=== PATIENT | male | born 1950 | race Caucasian/White ===

== ENCOUNTER 2023-10-09 16:16 | Inpatient (IN) ==
[2023-10-09] MEDS ORDERED: ACETAMINOPHEN 1,000 MG/100 ML VIAL IV STA (16:25)
[2023-10-09] MEDS ORDERED: CEFEPIME 2,000 MG/20 ML VIAL IV STA (16:25)
[2023-10-09] MEDS ORDERED: VANCOMYCIN HCL 1,500 MG in SODIUM CHLORIDE 0.9% 500 ML IV STA (16:25)
[2023-10-09] MEDS ORDERED: VANCOMYCIN CONSULT ACTIVE PRN (16:25)
[2023-10-09] MEDS ORDERED: SODIUM CHLORIDE 0.9% 1,000 ML IV SCH (16:30)
--- NOTE | 2023-10-09 16:40 | Emergency Department Note ---
Impression & Plan Sepsis, Hypoxia, Perforated viscus, Bilateral cellulitis of lower leg ED Provider Note Diagnosis: Sepsis, perforated viscus, hypoxia, thrombocytopenia, respiratory distress Disposition: Admission CHIEF COMPLAINT: Unresponsive, tachycardic, hypoxic HPI: Patient is a 72-year-old male found altered mental status at home by family. Patient reportedly had a fall 4 to 5 days prior and has not been acting himself since that time. Patient's son reports that he does not take any of his medications. Patient last time he was here couple months prior was diagnosed with CHF clot in his right atrium as well as atrial fibrillation. Patient found by EMS today to be hypotensive tachycardic and febrile. Patient had wounds to his legs that are weeping. Patient was given 2 L of LR prior to arrival with improvement in blood pressure up to 110 systolic upon arrival. Patient was reportedly 86% on room air for EMS requiring nasal cannula oxygen support. Patient's son was reportedly on scene and stated that the patient is a DNR/DNI. Patient unable to provide any history of present illness. PAST MEDICAL HISTORY: See Below PAST SURGICAL HISTORY: See Below SOCIAL HISTORY: See Below HOME MEDICATIONS: See Below ALLERGIES: See Below VITALS: See Below PHYSICAL EXAMINATION: GENERAL: Severe distress EYE EXAM: Normal conjunctiva. OROPHARYNX: Dry mucous membranes NECK: Supple, LUNGS: Clear to auscultation. Normal chest wall mechanics. HEART: Tachycardia, irregular regular rhythm ABDOMEN: Abdomen soft, non-tender, normo-active bowel sounds, no masses, no rebound or guarding BACK: No CVA TTP. SKIN: Lower extremities with weeping and cellulitis UPPER EXTREMITIES: Upper extremities are grossly normal LOWER EXTREMITIES: Grossly normal, no edema. NEURO EXAM: Patient minimally responsive to questioning, moves all fours purposefully PSYCH: Cooperative MEDICAL DECISION MAKING: Reviewed external documents: History obtained from: Patient, son, EMS ER Course: Patient is a 72-year-old male presenting after reportedly not acting his normal self since Friday. Patient reportedly had a fall and neighbors had called the son and states that the patient was not his normal self. Patient's son drove up Tg found him to be confused semiresponsive and in critical condition. Patient found by EMS to have a initial blood pressure of 50 systolic. Patient was given 2 L of LR which was started at 1545 and and infusion time was time of arrival in the emergency room. Patient was given another 1 L of normal saline to complete 30 cc/kg bolus per septic protocol. Patient was started on cefepime vancomycin. Patient found to be tachycardic with A-fib with RVR. Patient was started on amiodarone due to the hypotension. Patient placed on BiPAP due to his hypoxia and initial recommendation of not wanting to be intubated per the son. Patient found to have on blood work acute kidney injury as well as transaminitis and a CT noncontrast was performed which showed perforated viscus. Patient's case discussed with general surgery team who recommend taking patient to the operating room and admitting to the hospital service and intensive care team. Case was discussed with both hospitalist and ICU teams. Discussion was had with son the patient was in very critical condition and he understands that he may not survive his current situation. Labs (independently interpreted) are significant for: Sepsis, acute kidney injury, transaminitis, thrombocytopenia Imaging results (independently interpreted): Chest x-ray no overt pneumonia present EKG interpretation (independently interpreted): A-fib with RVR Medications given: Amiodarone, normal saline bolus, cefepime, vancomycin Consultants: Dr. Rivera of general surgery, reviewed patient's case CT scan and critical condition. Will take patient from ER to the operating room. Call was placed again updating him that patient was thrombocytopenic and he was in agreement with transfusing 1 pack of platelets and type and screen the patient. Patient mated to hospital service Case discussed with Awais from intensive care team Triage Nursing notes reviewed and agree them. Vital Signs: reviewed and remarkable for: Tachycardia, hypotension Patient's son bedside confirms DNR/DNI status originally. After discussion about findings of perforated viscus and need for potential surgery son states that patient can be intubated if necessary but would continue to have the patient is a DNR status Critical care time 55 minutes, this time does not include any time performing procedures. Past Med/Surg History Medical History (Updated 10/10/23 @ 02:07 by Kali Castro DO) Acute kidney failure Thrombocytopathia Cardiomyopathy Wound, open, leg Social History Smoking Status: Current every day smoker Tobacco Type: Cigarettes Cigarettes Per Day: 1; Second Hand Exposure: No; Do You Dip or Chew Tobacco: No; Tobacco Cessation Education Requested by Patient: No Hx Alcohol Use: Yes Alcohol type: hard liquor Hx Substance Use: No Preferred Language: Bulgarian Communication Ability: Unable Breast Puller Required: No Beliefs That Will Affect Care: None Current Living Situation: Family Other Information That Helps Us Care for You: No Feels Safe at Home: Yes Safety Concerns: Feels Safe At This Time Assistive Devices: Cane Allergies Allergies Allergy/AdvReac Type Severity Reaction Status Date / Time No Known Allergies Allergy Mild Verified 10/09/23 16:56 Home Meds Home Medications Medication Instructions Recorded Confirmed aspirin 325 mg tablet 325 mg PO DAILY 10/09/23 10/09/23 Results & Data (ED) Vital Signs Vital Signs - 24 hr 10/09/23 16:24 10/09/23 16:24 10/09/23 16:27 Temperature Temperature Source Pulse Rate 127 H 130 H Pulse Rate [Apical] Pulse Rate from SpO2 Sensor Pulse Rhythm Pulse Rhythm [Apical] Respiratory Rate 36 H Respiratory Effort / Characteristics Respiratory Depth Respiratory Pattern Blood Pressure 105/79 Blood Pressure [Left Arm] Blood Pressure [Right Radial Artery] Blood Pressure Mean 83 Blood Pressure Mean [Left Arm] Blood Pressure Mean [Right Radial Artery] Pulse Oximetry Oxygen Delivery Method Fraction of Inspired Oxygen Sepsis Recent Fever Within 48 Hours Sepsis New/Unexplained Change in Mental Status Sepsis Action Taken by Nursing 10/09/23 16:30 10/09/23 16:30 10/09/23 16:35 Temperature Temperature Source Pulse Rate 141 H Pulse Rate [Apical] Pulse Rate from SpO2 Sensor Pulse Rhythm Pulse Rhythm [Apical] Respiratory Rate 23 Respiratory Effort / Characteristics Respiratory Depth Respiratory Pattern Blood Pressure 110/80 118/83 Blood Pressure [Left Arm] Blood Pressure [Right Radial Artery] Blood Pressure Mean 87 86 Blood Pressure Mean [Left Arm] Blood Pressure Mean [Right Radial Artery] Pulse Oximetry 81 L Oxygen Delivery Method Fraction of Inspired Oxygen Sepsis Recent Fever Within 48 Hours Sepsis New/Unexplained Change in Mental Status Sepsis Action Taken by Nursing 10/09/23 16:35 10/09/23 16:40 10/09/23 16:41 Temperature Temperature Source Pulse Rate 144 H 143 H 146 H Pulse Rate [Apical] Pulse Rate from SpO2 Sensor 134 H 142 H 139 H Pulse Rhythm Pulse Rhythm [Apical] Respiratory Rate 37 H 30 H 30 H Respiratory Effort / Characteristics Respiratory Depth Respiratory Pattern Blood Pressure Blood Pressure [Left Arm] Blood Pressure [Right Radial Artery] Blood Pressure Mean Blood Pressure Mean [Left Arm] Blood Pressure Mean [Right Radial Artery] Pulse Oximetry 85 L 100 100 Oxygen Delivery Method Fraction of Inspired Oxygen Sepsis Recent Fever Within 48 Hours Sepsis New/Unexplained Change in Mental Status Sepsis Action Taken by Nursing 10/09/23 16:41 10/09/23 16:54 10/09/23 16:59 Temperature Temperature Source Pulse Rate 132 H Pulse Rate [Apical] Pulse Rate from SpO2 Sensor Pulse Rhythm Pulse Rhythm [Apical] Respiratory Rate 29 H Respiratory Effort / Characteristics Respiratory Depth Respiratory Pattern Blood Pressure 110/76 65/43 L Blood Pressure [Left Arm] Blood Pressure [Right Radial Artery] Blood Pressure Mean 79 53 Blood Pressure Mean [Left Arm] Blood Pressure Mean [Right Radial Artery] Pulse Oximetry Oxygen Delivery Method Fraction of Inspired Oxygen Sepsis Recent Fever Within 48 Hours Sepsis New/Unexplained Change in Mental Status Sepsis Action Taken by Nursing 10/09/23 16:59 10/09/23 17:03 10/09/23 17:06 Temperature Temperature Source Pulse Rate 132 H 135 H Pulse Rate [Apical] Pulse Rate from SpO2 Sensor Pulse Rhythm Pulse Rhythm [Apical] Respiratory Rate 30 H 28 H Respiratory Effort / Characteristics Respiratory Depth Respiratory Pattern Blood Pressure 87/45 L Blood Pressure [Left Arm] Blood Pressure [Right Radial Artery] Blood Pressure Mean 57 Blood Pressure Mean [Left Arm] Blood Pressure Mean [Right Radial Artery] Pulse Oximetry Oxygen Delivery Method Fraction of Inspired Oxygen Sepsis Recent Fever Within 48 Hours Sepsis New/Unexplained Change in Mental Status Sepsis Action Taken by Nursing 10/09/23 17:06 10/09/23 17:10 10/09/23 17:11 Temperature 37.4 C Temperature Source Oral Pulse Rate 126 H 145 H Pulse Rate [Apical] Pulse Rate from SpO2 Sensor 61 Pulse Rhythm Pulse Rhythm [Apical] Respiratory Rate 32 H 10 L Respiratory Effort / Characteristics Respiratory Depth Normal Respiratory Pattern Blood Pressure 83/50 L 84/50 L Blood Pressure [Left Arm] Blood Pressure [Right Radial Artery] Blood Pressure Mean 65 61 Blood Pressure Mean [Left Arm] Blood Pressure Mean [Right Radial Artery] Pulse Oximetry 78 L 79 L Oxygen Delivery Method Room Air Fraction of Inspired Oxygen Sepsis Recent Fever Within 48 Hours No Sepsis New/Unexplained Change in Mental Status Yes Sepsis Action Taken by Nursing Physician Notified 10/09/23 17:17 10/09/23 17:17 10/09/23 17:19 Temperature Temperature Source Pulse Rate 111 H 120 H Pulse Rate [Apical] Pulse Rate from SpO2 Sensor 71 Pulse Rhythm Pulse Rhythm [Apical] Respiratory Rate 37 H 41 H Respiratory Effort / Characteristics Respiratory Depth Respiratory Pattern Blood Pressure Blood Pressure [Left Arm] Blood Pressure [Right Radial Artery] Blood Pressure Mean 65 Blood Pressure Mean [Left Arm] Blood Pressure Mean [Right Radial Artery] Pulse Oximetry 97 84 L Oxygen Delivery Method Fraction of Inspired Oxygen Sepsis Recent Fever Within 48 Hours Sepsis New/Unexplained Change in Mental Status Sepsis Action Taken by Nursing 10/09/23 17:20 10/09/23 17:21 10/09/23 17:25 Temperature Temperature Source Pulse Rate 130 H 126 H 130 H Pulse Rate [Apical] Pulse Rate from SpO2 Sensor 65 Pulse Rhythm Pulse Rhythm [Apical] Respiratory Rate 25 H 35 H 30 H Respiratory Effort / Characteristics Respiratory Depth Respiratory Pattern Blood Pressure 83/55 L 75/62 L Blood Pressure [Left Arm] Blood Pressure [Right Radial Artery] Blood Pressure Mean 64 66 Blood Pressure Mean [Left Arm] Blood Pressure Mean [Right Radial Artery] Pulse Oximetry 91 87 L Oxygen Delivery Method Fraction of Inspired Oxygen Sepsis Recent Fever Within 48 Hours Sepsis New/Unexplained Change in Mental Status Sepsis Action Taken by Nursing 10/09/23 17:25 10/09/23 17:30 10/09/23 17:36 Temperature Temperature Source Pulse Rate 129 H 130 H Pulse Rate [Apical] Pulse Rate from SpO2 Sensor 65 71 Pulse Rhythm Pulse Rhythm [Apical] Respiratory Rate 33 H 31 H Respiratory Effort / Characteristics Respiratory Depth Respiratory Pattern Blood Pressure 75/62 L 72/61 L Blood Pressure [Left Arm] Blood Pressure [Right Radial Artery] Blood Pressure Mean 67 64 Blood Pressure Mean [Left Arm] Blood Pressure Mean [Right Radial Artery] Pulse Oximetry 91 87 L Oxygen Delivery Method Fraction of Inspired Oxygen Sepsis Recent Fever Within 48 Hours Sepsis New/Unexplained Change in Mental Status Sepsis Action Taken by Nursing 10/09/23 17:36 10/09/23 17:40 10/09/23 17:41 Temperature Temperature Source Pulse Rate 129 H Pulse Rate [Apical] Pulse Rate from SpO2 Sensor 66 Pulse Rhythm Pulse Rhythm [Apical] Respiratory Rate 31 H Respiratory Effort / Characteristics Respiratory Depth Respiratory Pattern Blood Pressure 79/62 L 99/61 L Blood Pressure [Left Arm] Blood Pressure [Right Radial Artery] Blood Pressure Mean 66 73 Blood Pressure Mean [Left Arm] Blood Pressure Mean [Right Radial Artery] Pulse Oximetry 86 L Oxygen Delivery Method Fraction of Inspired Oxygen Sepsis Recent Fever Within 48 Hours Sepsis New/Unexplained Change in Mental Status Sepsis Action Taken by Nursing 10/09/23 17:41 10/09/23 17:45 10/09/23 17:45 Temperature Temperature Source Pulse Rate 130 H 130 H Pulse Rate [Apical] 130 H Pulse Rate from SpO2 Sensor 65 Pulse Rhythm Pulse Rhythm [Apical] Respiratory Rate 33 H 31 H Respiratory Effort / Characteristics Respiratory Depth Respiratory Pattern Blood Pressure Blood Pressure [Left Arm] 95/55 L Blood Pressure [Right Radial Artery] Blood Pressure Mean Blood Pressure Mean [Left Arm] 68 Blood Pressure Mean [Right Radial Artery] Pulse Oximetry 86 L 86 L Oxygen Delivery Method Fraction of Inspired Oxygen Sepsis Recent Fever Within 48 Hours Sepsis New/Unexplained Change in Mental Status Sepsis Action Taken by Nursing 10/09/23 17:45 10/09/23 17:50 10/09/23 17:51 Temperature Temperature Source Pulse Rate 130 H Pulse Rate [Apical] Pulse Rate from SpO2 Sensor Pulse Rhythm Pulse Rhythm [Apical] Respiratory Rate 27 H Respiratory Effort / Characteristics Respiratory Depth Respiratory Pattern Blood Pressure 85/70 L 120/78 Blood Pressure [Left Arm] Blood Pressure [Right Radial Artery] Blood Pressure Mean 74 87 Blood Pressure Mean [Left Arm] Blood Pressure Mean [Right Radial Artery] Pulse Oximetry 88 L Oxygen Delivery Method Fraction of Inspired Oxygen Sepsis Recent Fever Within 48 Hours Sepsis New/Unexplained Change in Mental Status Sepsis Action Taken by Nursing 10/09/23 17:51 10/09/23 17:52 10/09/23 17:56 Temperature Temperature Source Pulse Rate 131 H 130 H Pulse Rate [Apical] Pulse Rate from SpO2 Sensor Pulse Rhythm Regular Pulse Rhythm [Apical] Respiratory Rate 33 H 18 Respiratory Effort / Characteristics Respiratory Depth Respiratory Pattern Blood Pressure 95/75 L Blood Pressure [Left Arm] Blood Pressure [Right Radial Artery] Blood Pressure Mean 83 Blood Pressure Mean [Left Arm] Blood Pressure Mean [Right Radial Artery] Pulse Oximetry 90 90 Oxygen Delivery Method BiPAP Fraction of Inspired Oxygen Sepsis Recent Fever Within 48 Hours Sepsis New/Unexplained Change in Mental Status Sepsis Action Taken by Nursing 10/09/23 17:56 10/09/23 18:00 10/09/23 18:00 Temperature Temperature Source Pulse Rate 130 H 129 H Pulse Rate [Apical] 128 H Pulse Rate from SpO2 Sensor 56 L 79 Pulse Rhythm Pulse Rhythm [Apical] Respiratory Rate 33 H 32 H Respiratory Effort / Characteristics Respiratory Depth Respiratory Pattern Blood Pressure Blood Pressure [Left Arm] 104/72 Blood Pressure [Right Radial Artery] Blood Pressure Mean Blood Pressure Mean [Left Arm] 82 Blood Pressure Mean [Right Radial Artery] Pulse Oximetry 89 L 97 Oxygen Delivery Method Fraction of Inspired Oxygen Sepsis Recent Fever Within 48 Hours Sepsis New/Unexplained Change in Mental Status Sepsis Action Taken by Nursing 10/09/23 18:01 10/09/23 18:01 10/09/23 18:06 Temperature Temperature Source Pulse Rate 129 H Pulse Rate [Apical] Pulse Rate from SpO2 Sensor 74 Pulse Rhythm Pulse Rhythm [Apical] Respiratory Rate 34 H Respiratory Effort / Characteristics Respiratory Depth Respiratory Pattern Blood Pressure 104/72 111/80 Blood Pressure [Left Arm] Blood Pressure [Right Radial Artery] Blood Pressure Mean 75 97 Blood Pressure Mean [Left Arm] Blood Pressure Mean [Right Radial Artery] Pulse Oximetry 99 Oxygen Delivery Method Fraction of Inspired Oxygen Sepsis Recent Fever Within 48 Hours Sepsis New/Unexplained Change in Mental Status Sepsis Action Taken by Nursing 10/09/23 18:06 10/09/23 18:10 10/09/23 18:11 Temperature Temperature Source Pulse Rate 117 H 126 H 126 H Pulse Rate [Apical] Pulse Rate from SpO2 Sensor 55 L 59 L 62 Pulse Rhythm Pulse Rhythm [Apical] Respiratory Rate 32 H 33 H 31 H Respiratory Effort / Characteristics Respiratory Depth Respiratory Pattern Blood Pressure Blood Pressure [Left Arm] Blood Pressure [Right Radial Artery] Blood Pressure Mean Blood Pressure Mean [Left Arm] Blood Pressure Mean [Right Radial Artery] Pulse Oximetry 97 96 96 Oxygen Delivery Method Fraction of Inspired Oxygen Sepsis Recent Fever Within 48 Hours Sepsis New/Unexplained Change in Mental Status Sepsis Action Taken by Nursing 10/09/23 18:11 10/09/23 18:11 10/09/23 18:28 Temperature Temperature Source Pulse Rate 115 H Pulse Rate [Apical] Pulse Rate from SpO2 Sensor 100 H Pulse Rhythm Pulse Rhythm [Apical] Respiratory Rate 16 Respiratory Effort / Characteristics Respiratory Depth Respiratory Pattern Blood Pressure 86/56 L 86/56 L Blood Pressure [Left Arm] Blood Pressure [Right Radial Artery] Blood Pressure Mean 61 61 Blood Pressure Mean [Left Arm] Blood Pressure Mean [Right Radial Artery] Pulse Oximetry 99 Oxygen Delivery Method Fraction of Inspired Oxygen Sepsis Recent Fever Within 48 Hours Sepsis New/Unexplained Change in Mental Status Sepsis Action Taken by Nursing 10/09/23 18:30 10/09/23 18:30 10/09/23 18:30 Temperature Temperature Source Pulse Rate 121 H Pulse Rate [Apical] 113 H Pulse Rate from SpO2 Sensor 92 H Pulse Rhythm Pulse Rhythm [Apical] Respiratory Rate 20 32 H Respiratory Effort / Characteristics Respiratory Depth Respiratory Pattern Blood Pressure 102/76 Blood Pressure [Left Arm] 102/76 Blood Pressure [Right Radial Artery] Blood Pressure Mean 83 Blood Pressure Mean [Left Arm] 84 Blood Pressure Mean [Right Radial Artery] Pulse Oximetry 93 97 Oxygen Delivery Method BiPAP Fraction of Inspired Oxygen Sepsis Recent Fever Within 48 Hours Sepsis New/Unexplained Change in Mental Status Sepsis Action Taken by Nursing 10/09/23 18:36 10/09/23 18:36 10/09/23 18:39 Temperature Temperature Source Pulse Rate 121 H Pulse Rate [Apical] 114 H Pulse Rate from SpO2 Sensor 58 L Pulse Rhythm Pulse Rhythm [Apical] Respiratory Rate 33 H Respiratory Effort / Characteristics Respiratory Depth Respiratory Pattern Blood Pressure 97/78 L Blood Pressure [Left Arm] 97/78 L Blood Pressure [Right Radial Artery] Blood Pressure Mean 81 Blood Pressure Mean [Left Arm] 84 Blood Pressure Mean [Right Radial Artery] Pulse Oximetry 93 Oxygen Delivery Method Fraction of Inspired Oxygen Sepsis Recent Fever Within 48 Hours Sepsis New/Unexplained Change in Mental Status Sepsis Action Taken by Nursing 10/09/23 18:40 10/09/23 18:41 10/09/23 18:41 Temperature Temperature Source Pulse Rate 122 H 124 H Pulse Rate [Apical] Pulse Rate from SpO2 Sensor 110 H 119 H Pulse Rhythm Pulse Rhythm [Apical] Respiratory Rate 34 H 33 H Respiratory Effort / Characteristics Respiratory Depth Respiratory Pattern Blood Pressure 99/82 L Blood Pressure [Left Arm] Blood Pressure [Right Radial Artery] Blood Pressure Mean 86 Blood Pressure Mean [Left Arm] Blood Pressure Mean [Right Radial Artery] Pulse Oximetry 89 L 90 Oxygen Delivery Method Fraction of Inspired Oxygen Sepsis Recent Fever Within 48 Hours Sepsis New/Unexplained Change in Mental Status Sepsis Action Taken by Nursing 10/09/23 18:42 10/09/23 18:46 10/09/23 18:46 Temperature Temperature Source Pulse Rate 124 H Pulse Rate [Apical] 124 H Pulse Rate from SpO2 Sensor 61 Pulse Rhythm Pulse Rhythm [Apical] Respiratory Rate 33 H Respiratory Effort / Characteristics Respiratory Depth Respiratory Pattern Blood Pressure 105/62 Blood Pressure [Left Arm] 99/82 L Blood Pressure [Right Radial Artery] Blood Pressure Mean 73 Blood Pressure Mean [Left Arm] 87 Blood Pressure Mean [Right Radial Artery] Pulse Oximetry 88 L Oxygen Delivery Method Fraction of Inspired Oxygen Sepsis Recent Fever Within 48 Hours Sepsis New/Unexplained Change in Mental Status Sepsis Action Taken by Nursing 10/09/23 18:50 10/09/23 18:50 10/09/23 18:55 Temperature Temperature Source Pulse Rate 124 H Pulse Rate [Apical] Pulse Rate from SpO2 Sensor 127 H Pulse Rhythm Pulse Rhythm [Apical] Respiratory Rate 32 H Respiratory Effort / Characteristics Respiratory Depth Respiratory Pattern Blood Pressure 95/74 L 89/74 L Blood Pressure [Left Arm] Blood Pressure [Right Radial Artery] Blood Pressure Mean 80 78 Blood Pressure Mean [Left Arm] Blood Pressure Mean [Right Radial Artery] Pulse Oximetry 93 Oxygen Delivery Method Fraction of Inspired Oxygen Sepsis Recent Fever Within 48 Hours Sepsis New/Unexplained Change in Mental Status Sepsis Action Taken by Nursing 10/09/23 18:55 10/09/23 18:55 10/09/23 18:58 Temperature Temperature Source Pulse Rate 124 H 98 H Pulse Rate [Apical] Pulse Rate from SpO2 Sensor 123 H Pulse Rhythm Pulse Rhythm [Apical] Respiratory Rate 33 H 28 H Respiratory Effort / Characteristics Non-Labored Spontaneous Respiratory Depth Deep Respiratory Pattern Rapid/Deep Tachypnea Blood Pressure 89/74 L Blood Pressure [Left Arm] Blood Pressure [Right Radial Artery] Blood Pressure Mean 78 Blood Pressure Mean [Left Arm] Blood Pressure Mean [Right Radial Artery] Pulse Oximetry 90 92 Oxygen Delivery Method Fraction of Inspired Oxygen 60 Sepsis Recent Fever Within 48 Hours Sepsis New/Unexplained Change in Mental Status Sepsis Action Taken by Nursing 10/09/23 19:00 10/09/23 19:00 10/09/23 19:06 Temperature Temperature Source Pulse Rate 124 H Pulse Rate [Apical] Pulse Rate from SpO2 Sensor 128 H Pulse Rhythm Pulse Rhythm [Apical] Respiratory Rate 32 H Respiratory Effort / Characteristics Respiratory Depth Respiratory Pattern Blood Pressure 106/70 88/63 L Blood Pressure [Left Arm] Blood Pressure [Right Radial Artery] Blood Pressure Mean 82 65 Blood Pressure Mean [Left Arm] Blood Pressure Mean [Right Radial Artery] Pulse Oximetry 94 Oxygen Delivery Method Fraction of Inspired Oxygen Sepsis Recent Fever Within 48 Hours Sepsis New/Unexplained Change in Mental Status Sepsis Action Taken by Nursing 10/09/23 19:06 10/09/23 19:10 10/09/23 19:11 Temperature Temperature Source Pulse Rate 123 H 123 H Pulse Rate [Apical] Pulse Rate from SpO2 Sensor 81 112 H Pulse Rhythm Pulse Rhythm [Apical] Respiratory Rate 31 H 32 H Respiratory Effort / Characteristics Respiratory Depth Respiratory Pattern Blood Pressure 103/69 Blood Pressure [Left Arm] Blood Pressure [Right Radial Artery] Blood Pressure Mean 74 Blood Pressure Mean [Left Arm] Blood Pressure Mean [Right Radial Artery] Pulse Oximetry 95 87 L Oxygen Delivery Method Fraction of Inspired Oxygen Sepsis Recent Fever Within 48 Hours Sepsis New/Unexplained Change in Mental Status Sepsis Action Taken by Nursing 10/09/23 19:11 10/09/23 19:15 10/09/23 19:16 Temperature 38.3 C H Temperature Source Evans Cath ( Temp Sensing) Pulse Rate 121 H 123 H Pulse Rate [Apical] 124 H Pulse Rate from SpO2 Sensor 108 H 121 H Pulse Rhythm Pulse Rhythm [Apical] Respiratory Rate 39 H 33 H Respiratory Effort / Characteristics Respiratory Depth Respiratory Pattern Blood Pressure Blood Pressure [Left Arm] Blood Pressure [Right Radial Artery] Blood Pressure Mean Blood Pressure Mean [Left Arm] Blood Pressure Mean [Right Radial Artery] Pulse Oximetry 91 95 96 Oxygen Delivery Method BiPAP BiPAP Fraction of Inspired Oxygen Sepsis Recent Fever Within 48 Hours Sepsis New/Unexplained Change in Mental Status Sepsis Action Taken by Nursing 10/09/23 19:16 10/09/23 19:20 10/09/23 19:20 Temperature Temperature Source Pulse Rate 123 H Pulse Rate [Apical] Pulse Rate from SpO2 Sensor 121 H Pulse Rhythm Pulse Rhythm [Apical] Respiratory Rate 35 H Respiratory Effort / Characteristics Respiratory Depth Respiratory Pattern Blood Pressure 91/70 L Blood Pressure [Left Arm] Blood Pressure [Right Radial Artery] Blood Pressure Mean 80 73 Blood Pressure Mean [Left Arm] Blood Pressure Mean [Right Radial Artery] Pulse Oximetry 97 Oxygen Delivery Method Fraction of Inspired Oxygen Sepsis Recent Fever Within 48 Hours Sepsis New/Unexplained Change in Mental Status Sepsis Action Taken by Nursing 10/09/23 19:26 10/09/23 19:26 10/09/23 19:30 Temperature Temperature Source Pulse Rate 123 H 122 H Pulse Rate [Apical] Pulse Rate from SpO2 Sensor 118 H 110 H Pulse Rhythm Pulse Rhythm [Apical] Respiratory Rate 36 H 35 H Respiratory Effort / Characteristics Respiratory Depth Respiratory Pattern Blood Pressure 85/67 L Blood Pressure [Left Arm] Blood Pressure [Right Radial Artery] Blood Pressure Mean 70 Blood Pressure Mean [Left Arm] Blood Pressure Mean [Right Radial Artery] Pulse Oximetry 91 Oxygen Delivery Method Fraction of Inspired Oxygen Sepsis Recent Fever Within 48 Hours Sepsis New/Unexplained Change in Mental Status Sepsis Action Taken by Nursing 10/09/23 19:31 10/09/23 19:31 10/09/23 19:40 Temperature Temperature Source Pulse Rate 123 H 116 H Pulse Rate [Apical] Pulse Rate from SpO2 Sensor 130 H 108 H Pulse Rhythm Pulse Rhythm [Apical] Respiratory Rate 36 H 34 H Respiratory Effort / Characteristics Respiratory Depth Respiratory Pattern Blood Pressure Blood Pressure [Left Arm] Blood Pressure [Right Radial Artery] Blood Pressure Mean 69 Blood Pressure Mean [Left Arm] Blood Pressure Mean [Right Radial Artery] Pulse Oximetry 95 91 Oxygen Delivery Method Fraction of Inspired Oxygen Sepsis Recent Fever Within 48 Hours Sepsis New/Unexplained Change in Mental Status Sepsis Action Taken by Nursing 10/09/23 19:41 10/09/23 19:41 10/09/23 19:44 Temperature Temperature Source Pulse Rate 115 H Pulse Rate [Apical] Pulse Rate from SpO2 Sensor 87 Pulse Rhythm Pulse Rhythm [Apical] Respiratory Rate 35 H Respiratory Effort / Characteristics Respiratory Depth Respiratory Pattern Blood Pressure 74/61 L 82/67 L Blood Pressure [Left Arm] Blood Pressure [Right Radial Artery] Blood Pressure Mean 64 71 Blood Pressure Mean [Left Arm] Blood Pressure Mean [Right Radial Artery] Pulse Oximetry Oxygen Delivery Method Fraction of Inspired Oxygen Sepsis Recent Fever Within 48 Hours Sepsis New/Unexplained Change in Mental Status Sepsis Action Taken by Nursing 10/09/23 19:44 10/09/23 19:46 10/09/23 19:46 Temperature Temperature Source Pulse Rate 116 H 117 H Pulse Rate [Apical] Pulse Rate from SpO2 Sensor 114 H Pulse Rhythm Pulse Rhythm [Apical] Respiratory Rate 34 H 35 H Respiratory Effort / Characteristics Respiratory Depth Respiratory Pattern Blood Pressure 90/69 L Blood Pressure [Left Arm] Blood Pressure [Right Radial Artery] Blood Pressure Mean 72 Blood Pressure Mean [Left Arm] Blood Pressure Mean [Right Radial Artery] Pulse Oximetry Oxygen Delivery Method Fraction of Inspired Oxygen Sepsis Recent Fever Within 48 Hours Sepsis New/Unexplained Change in Mental Status Sepsis Action Taken by Nursing 10/09/23 19:50 10/09/23 19:50 10/09/23 19:56 Temperature Temperature Source Pulse Rate 116 H 118 H Pulse Rate [Apical] Pulse Rate from SpO2 Sensor 115 H 119 H Pulse Rhythm Pulse Rhythm [Apical] Respiratory Rate 36 H 36 H Respiratory Effort / Characteristics Respiratory Depth Respiratory Pattern Blood Pressure 81/63 L Blood Pressure [Left Arm] Blood Pressure [Right Radial Artery] Blood Pressure Mean 74 Blood Pressure Mean [Left Arm] Blood Pressure Mean [Right Radial Artery] Pulse Oximetry 94 92 Oxygen Delivery Method Fraction of Inspired Oxygen Sepsis Recent Fever Within 48 Hours Sepsis New/Unexplained Change in Mental Status Sepsis Action Taken by Nursing 10/09/23 19:56 10/09/23 20:00 10/09/23 20:00 Temperature Temperature Source Pulse Rate 105 H Pulse Rate [Apical] Pulse Rate from SpO2 Sensor 66 Pulse Rhythm Pulse Rhythm [Apical] Respiratory Rate 37 H Respiratory Effort / Characteristics Respiratory Depth Respiratory Pattern Blood Pressure 85/71 L Blood Pressure [Left Arm] Blood Pressure [Right Radial Artery] Blood Pressure Mean 79 Blood Pressure Mean [Left Arm] Blood Pressure Mean [Right Radial Artery] Pulse Oximetry Oxygen Delivery Method BiPAP Fraction of Inspired Oxygen Sepsis Recent Fever Within 48 Hours Sepsis New/Unexplained Change in Mental Status Sepsis Action Taken by Nursing 10/09/23 20:10 10/09/23 20:11 10/09/23 20:11 Temperature Temperature Source Pulse Rate 114 H 112 H Pulse Rate [Apical] Pulse Rate from SpO2 Sensor 87 97 H Pulse Rhythm Pulse Rhythm [Apical] Respiratory Rate 36 H 35 H Respiratory Effort / Characteristics Respiratory Depth Respiratory Pattern Blood Pressure 84/61 L Blood Pressure [Left Arm] Blood Pressure [Right Radial Artery] Blood Pressure Mean 72 Blood Pressure Mean [Left Arm] Blood Pressure Mean [Right Radial Artery] Pulse Oximetry Oxygen Delivery Method Fraction of Inspired Oxygen Sepsis Recent Fever Within 48 Hours Sepsis New/Unexplained Change in Mental Status Sepsis Action Taken by Nursing 10/09/23 20:17 10/09/23 20:17 10/09/23 20:20 Temperature Temperature Source Pulse Rate 114 H 112 H Pulse Rate [Apical] Pulse Rate from SpO2 Sensor 99 H 90 Pulse Rhythm Pulse Rhythm [Apical] Respiratory Rate 38 H 36 H Respiratory Effort / Characteristics Respiratory Depth Respiratory Pattern Blood Pressure Blood Pressure [Left Arm] Blood Pressure [Right Radial Artery] Blood Pressure Mean 63 Blood Pressure Mean [Left Arm] Blood Pressure Mean [Right Radial Artery] Pulse Oximetry 83 L Oxygen Delivery Method BiPAP Fraction of Inspired Oxygen Sepsis Recent Fever Within 48 Hours Sepsis New/Unexplained Change in Mental Status Sepsis Action Taken by Nursing 10/09/23 20:23 10/09/23 20:30 10/09/23 20:51 Temperature 38.2 C H Temperature Source Evans Cath ( Temp Sensing) Pulse Rate 108 H 115 H 114 H Pulse Rate [Apical] Pulse Rate from SpO2 Sensor Pulse Rhythm Pulse Rhythm [Apical] Respiratory Rate 37 H 36 H Respiratory Effort / Characteristics Respiratory Depth Respiratory Pattern Blood Pressure Blood Pressure [Left Arm] Blood Pressure [Right Radial Artery] Blood Pressure Mean Blood Pressure Mean [Left Arm] Blood Pressure Mean [Right Radial Artery] Pulse Oximetry 89 L Oxygen Delivery Method BiPAP Fraction of Inspired Oxygen Sepsis Recent Fever Within 48 Hours Sepsis New/Unexplained Change in Mental Status Sepsis Action Taken by Nursing 10/09/23 22:15 Temperature 36.2 C L Temperature Source Evans Cath ( Temp Sensing) Pulse Rate Pulse Rate [Apical] 97 H Pulse Rate from SpO2 Sensor Pulse Rhythm Pulse Rhythm [Apical] Regular Respiratory Rate 18 Respiratory Effort / Characteristics Respiratory Depth Respiratory Pattern Blood Pressure Blood Pressure [Left Arm] Blood Pressure [Right Radial Artery] 142/112 H Blood Pressure Mean Blood Pressure Mean [Left Arm] Blood Pressure Mean [Right Radial Artery] 122 Pulse Oximetry Oxygen Delivery Method Mechanical Vent Fraction of Inspired Oxygen 100 Sepsis Recent Fever Within 48 Hours Sepsis New/Unexplained Change in Mental Status Sepsis Action Taken by Nursing Laboratory Data 10/09/23 22:59 10/09/23 22:59 Lab Results 10/09/23 10/09/23 10/09/23 Range/Units 16:28 16:29 16:43 WBC 17.46 H (4.8-10.8) K/ul RBC 4.60 L (4.70-6.10) M/uL Hgb 13.6 L (14.0-18.0) g/dl Hct 39.7 L (42.0-52.0) % MCV 86.3 (80.0-100.0) fL MCH 29.6 (25.0-34.0) pg MCHC 34.3 (32.0-36.0) g/dL RDW Std Deviation 53.2 H (36.4-46.3) fL RDW Coeff of Emily 17.0 H (11.5-14.5) % Plt Count 51 L (130-400) K/uL MPV 12.3 (9.4-12.4) fL Immature Gran % (Auto) 9.4 % Neut % (Auto) 81.6 % Lymph % (Auto) 3.8 % [place] % (Auto) 2.4 % Eos % (Auto) 2.3 % Baso % (Auto) 0.5 % Neut # (Auto) 14.25 H (1.40-6.50) K/uL Lymph # (Auto) 0.66 L (1.20-3.40) K/uL [place] # (Auto) 0.42 (0.11-0.59) K/uL Eos # (Auto) 0.41 (0.00-0.50) K/uL Baso # (Auto) 0.08 (0.00-0.20) K/uL Immature Gran # (Auto) 1.64 H (0.01-0.20) K/uL Absolute Nucleated RBC 0.03 (0.00-0.12) K/uL Nucleated RBC % (auto) 0.2 % Toxic Vacuolation 3+ Platelet Estimate Decreased L (Normal) Echinocytes 3+ PT 12.6 H (9.0-12.0) Seconds INR 1.2 H (0.9-1.1) APTT 29 (21-31) Seconds PTT Ratio 1.0 ABG pH 7.39 (7.35-7.45) ABG pCO2 20 L (35-46) mmHg ABG pO2 252 H (80-95) mmHg ABG HCO3 12 L (19-24) mmol/L ABG O2 Saturation 99.8 H (90-95) % ABG Base Excess -10.5 L (-9-1.8) mEq/L Jamel Test Pos (Pos) Oxygen Given 70% Sodium 135 L (136-145) mmol/L Potassium 4.6 (3.5-5.1) mmol/L Chloride 103 (98-107) mmol/L Carbon Dioxide 13 L (21-32) mmol/L Anion Gap 19 H (3-11) BUN 77 H (6-23) mg/dl Creatinine 3.94 H (0.6-1.4) mg/dl Est Cr Clr Drug Dosing Not Reportable Est GFR ( Amer) 16.5 ml/min Est GFR (Non-Af Amer) 14.3 ml/min BUN/Creatinine Ratio 19.5 (10-20) Glucose 159 H (70-99(Fasting)) mg/dl Lactate 8.6 H* (0.4-2.0) mmol/L Calcium 8.0 L (8.6-10.3) mg/dl Magnesium 1.9 (1.7-2.4) mg/dl Total Bilirubin 2.3 H (0.2-1.0) mg/dl Direct Bilirubin 1.4 H (0-0.2) mg/dl AST 33 (13-39) U/L ALT 12 (7-52) U/L Alkaline Phosphatase 161 H (34-104) U/L Troponin I High Sens 1538.6 H* (0-20) pg/ml B-Natriuretic Peptide 2114 H (0-100) pg/ml Total Protein 5.2 L (6.0-8.3) gm/dl Albumin 2.4 L (3.4-5.0) gm/dl Procalcitonin 177.03 H (0-0.5) ng/ml Urine Color Urine Appearance (Clear) Urine pH (4.5-7.5) Ur Specific [place] (1.000-1.030) Urine Protein (Negative) Urine Glucose (UA) (Negative) Urine Ketones (Negative) Urine Blood (Negative) Urine Nitrite (Negative) Urine Bilirubin (Negative) Urine Urobilinogen (Negative) Ur Leukocyte Esterase (Negative) Urine WBC (Auto) (0-5) /hpf Urine RBC (Auto) (0-4) /hpf U Hyaline Cast (Auto) (0-5) /lpf U Epithel Cells (Auto) (0-5) /lpf Urine Bacteria (Auto) (Negative) Salicylates < 3.0 L (3.0-30) mg/dl Urine Opiates Screen (Neg) Ur Methadone, Qual (Neg) Acetaminophen < 3 L (10-30) ug/ml Urine Barbiturates (Neg) Ur Phencyclidine (PCP) (Neg) U Amphetamin/Meth Scrn (Neg) MDMA (Ecstasy) Screen (Neg) U Benzodiazepines Scrn (Neg) Ur Cocaine Metabolite (Neg) U Marijuana (THC) Screen (Neg) Ethyl Alcohol mg/dL < 10.0 (<10.0) mg/dl Bld Cult ID Panel PCR PCR Panel Negative (NotDetected) Blood Type Antibody Screen 10/09/23 10/09/23 10/09/23 Range/Units 17:45 19:28 20:00 WBC (4.8-10.8) K/ul RBC (4.70-6.10) M/uL Hgb (14.0-18.0) g/dl Hct (42.0-52.0) % MCV (80.0-100.0) fL MCH (25.0-34.0) pg MCHC (32.0-36.0) g/dL RDW Std Deviation (36.4-46.3) fL RDW Coeff of Emily (11.5-14.5) % Plt Count (130-400) K/uL MPV (9.4-12.4) fL Immature Gran % (Auto) % Neut % (Auto) % Lymph % (Auto) % [place] % (Auto) % Eos % (Auto) % Baso % (Auto) % Neut # (Auto) (1.40-6.50) K/uL Lymph # (Auto) (1.20-3.40) K/uL [place] # (Auto) (0.11-0.59) K/uL Eos # (Auto) (0.00-0.50) K/uL Baso # (Auto) (0.00-0.20) K/uL Immature Gran # (Auto) (0.01-0.20) K/uL Absolute Nucleated RBC (0.00-0.12) K/uL Nucleated RBC % (auto) % Toxic Vacuolation Platelet Estimate (Normal) Echinocytes PT (9.0-12.0) Seconds INR (0.9-1.1) APTT (21-31) Seconds PTT Ratio ABG pH (7.35-7.45) ABG pCO2 (35-46) mmHg ABG pO2 (80-95) mmHg ABG HCO3 (19-24) mmol/L ABG O2 Saturation (90-95) % ABG Base Excess (-9-1.8) mEq/L Jamel Test (Pos) Oxygen Given Sodium (136-145) mmol/L Potassium (3.5-5.1) mmol/L Chloride (98-107) mmol/L Carbon Dioxide (21-32) mmol/L Anion Gap (3-11) BUN (6-23) mg/dl Creatinine (0.6-1.4) mg/dl Est Cr Clr Drug Dosing Est GFR ( Amer) ml/min Est GFR (Non-Af Amer) ml/min BUN/Creatinine Ratio (10-20) Glucose (70-99(Fasting)) mg/dl Lactate 9.5 H* (0.4-2.0) mmol/L Calcium (8.6-10.3) mg/dl Magnesium (1.7-2.4) mg/dl Total Bilirubin (0.2-1.0) mg/dl Direct Bilirubin (0-0.2) mg/dl AST (13-39) U/L ALT (7-52) U/L Alkaline Phosphatase (34-104) U/L Troponin I High Sens 2003.1 H* D (0-20) pg/ml B-Natriuretic Peptide (0-100) pg/ml Total Protein (6.0-8.3) gm/dl Albumin (3.4-5.0) gm/dl Procalcitonin (0-0.5) ng/ml Urine Color Dark Yellow Urine Appearance Cloudy A (Clear) Urine pH 5.0 (4.5-7.5) Ur Specific [place] 1.017 (1.000-1.030) Urine Protein 3+ H (Negative) Urine Glucose (UA) Negative (Negative) Urine Ketones Negative (Negative) Urine Blood 1+ H (Negative) Urine Nitrite Positive A (Negative) Urine Bilirubin 1+ H (Negative) Urine Urobilinogen Negative (Negative) Ur Leukocyte Esterase Trace H (Negative) Urine WBC (Auto) 1-5 (0-5) /hpf Urine RBC (Auto) 5-10 H (0-4) /hpf U Hyaline Cast (Auto) 1-5 (0-5) /lpf U Epithel Cells (Auto) >30 H (0-5) /lpf Urine Bacteria (Auto) Negative (Negative) Salicylates (3.0-30) mg/dl Urine Opiates Screen Neg (Neg) Ur Methadone, Qual Neg (Neg) Acetaminophen (10-30) ug/ml Urine Barbiturates Neg (Neg) Ur Phencyclidine (PCP) Neg (Neg) U Amphetamin/Meth Scrn Neg (Neg) MDMA (Ecstasy) Screen Neg (Neg) U Benzodiazepines Scrn Neg (Neg) Ur Cocaine Metabolite Neg (Neg) U Marijuana (THC) Screen Neg (Neg) Ethyl Alcohol mg/dL (<10.0) mg/dl Bld Cult ID Panel PCR (NotDetected) Blood Type A Positive Antibody Screen NEGATIVE 10/09/23 Range/Units 21:20 WBC (4.8-10.8) K/ul RBC (4.70-6.10) M/uL Hgb (14.0-18.0) g/dl Hct (42.0-52.0) % MCV (80.0-100.0) fL MCH (25.0-34.0) pg MCHC (32.0-36.0) g/dL RDW Std Deviation (36.4-46.3) fL RDW Coeff of Emily (11.5-14.5) % Plt Count (130-400) K/uL MPV (9.4-12.4) fL Immature Gran % (Auto) % Neut % (Auto) % Lymph % (Auto) % [place] % (Auto) % Eos % (Auto) % Baso % (Auto) % Neut # (Auto) (1.40-6.50) K/uL Lymph # (Auto) (1.20-3.40) K/uL [place] # (Auto) (0.11-0.59) K/uL Eos # (Auto) (0.00-0.50) K/uL Baso # (Auto) (0.00-0.20) K/uL Immature Gran # (Auto) (0.01-0.20) K/uL Absolute Nucleated RBC (0.00-0.12) K/uL Nucleated RBC % (auto) % Toxic Vacuolation Platelet Estimate (Normal) Echinocytes PT (9.0-12.0) Seconds INR (0.9-1.1) APTT (21-31) Seconds PTT Ratio ABG pH 7.02 L* (7.35-7.45) ABG pCO2 31 L (35-46) mmHg ABG pO2 302 H (80-95) mmHg ABG HCO3 8 L (19-24) mmol/L ABG O2 Saturation > 100.0 H (90-95) % ABG Base Excess -22.0 L (-9-1.8) mEq/L Jamel Test Pos (Pos) Oxygen Given BIPAP Sodium (136-145) mmol/L Potassium (3.5-5.1) mmol/L Chloride (98-107) mmol/L Carbon Dioxide (21-32) mmol/L Anion Gap (3-11) BUN (6-23) mg/dl Creatinine (0.6-1.4) mg/dl Est Cr Clr Drug Dosing Est GFR ( Amer) ml/min Est GFR (Non-Af Amer) ml/min BUN/Creatinine Ratio (10-20) Glucose (70-99(Fasting)) mg/dl Lactate (0.4-2.0) mmol/L Calcium (8.6-10.3) mg/dl Magnesium (1.7-2.4) mg/dl Total Bilirubin (0.2-1.0) mg/dl Direct Bilirubin (0-0.2) mg/dl AST (13-39) U/L ALT (7-52) U/L Alkaline Phosphatase (34-104) U/L Troponin I High Sens (0-20) pg/ml B-Natriuretic Peptide (0-100) pg/ml Total Protein (6.0-8.3) gm/dl Albumin (3.4-5.0) gm/dl Procalcitonin (0-0.5) ng/ml Urine Color Urine Appearance (Clear) Urine pH (4.5-7.5) Ur Specific [place] (1.000-1.030) Urine Protein (Negative) Urine Glucose (UA) (Negative) Urine Ketones (Negative) Urine Blood (Negative) Urine Nitrite (Negative) Urine Bilirubin (Negative) Urine Urobilinogen (Negative) Ur Leukocyte Esterase (Negative) Urine WBC (Auto) (0-5) /hpf Urine RBC (Auto) (0-4) /hpf U Hyaline Cast (Auto) (0-5) /lpf U Epithel Cells (Auto) (0-5) /lpf Urine Bacteria (Auto) (Negative) Salicylates (3.0-30) mg/dl Urine Opiates Screen (Neg) Ur Methadone, Qual (Neg) Acetaminophen (10-30) ug/ml Urine Barbiturates (Neg) Ur Phencyclidine (PCP) (Neg) U Amphetamin/Meth Scrn (Neg) MDMA (Ecstasy) Screen (Neg) U Benzodiazepines Scrn (Neg) Ur Cocaine Metabolite (Neg) U Marijuana (THC) Screen (Neg) Ethyl Alcohol mg/dL (<10.0) mg/dl Bld Cult ID Panel PCR (NotDetected) Blood Type Antibody Screen Administered Medications Amiodarone HCl/Dextrose (Nexterone / D5w) 360 mg in 200 mls @ 16.667 mls/hr IV .Q12H [facility] Stop: 11/08/23 23:44 Last Admin: 10/09/23 22:49 Dose: 0.5 mg/min, 16.7 mls/hr Documented By: ELS Co-signed By: CP Norepinephrine Bitartrate (Levophed/D5w) 4 mg in 250 mls @ 14.85 mls/hr IV .[id number] [facility]; Protocol Stop: 11/08/23 22:44 Last Titration: 10/10/23 00:00 Dose: 0.5 mcg/kg/min, 148.5 mls/hr Documented By: Titration: 10/09/23 23:50 Dose: 0.3 mcg/kg/min, 89.1 mls/hr Documented By: Titration: 10/09/23 23:45 Dose: 0.25 mcg/kg/min, 74.3 mls/hr Documented By: Titration: 10/09/23 23:40 Dose: 0.23 mcg/kg/min, 68.3 mls/hr Documented By: Titration: 10/09/23 23:35 Dose: 0.21 mcg/kg/min, 62.4 mls/hr Documented By: Titration: 10/09/23 23:30 Dose: 0.19 mcg/kg/min, 56.4 mls/hr Documented By: Titration: 10/09/23 23:25 Dose: 0.17 mcg/kg/min, 50.5 mls/hr Documented By: Titration: 10/09/23 23:20 Dose: 0.15 mcg/kg/min, 44.6 mls/hr Documented By: Titration: 10/09/23 23:15 Dose: 0.13 mcg/kg/min, 38.6 mls/hr Documented By: Titration: 10/09/23 23:10 Dose: 0.11 mcg/kg/min, 32.7 mls/hr Documented By: Titration: 10/09/23 23:05 Dose: 0.09 mcg/kg/min, 26.7 mls/hr Documented By: Titration: 10/09/23 23:00 Dose: 0.07 mcg/kg/min, 20.8 mls/hr Documented By: Admin: 10/09/23 22:55 Dose: 0.05 mcg/kg/min, 14.9 mls/hr Documented By: ELS Co-signed By: MAURO Fentanyl Citrate (Fentanyl Citrate) 2,500 mcg in 250 mls @ 0 mls/hr IV .Q0M [facility]; Protocol Stop: 10/23/23 22:44 Last Titration: 10/10/23 01:01 Dose: 0 mcg/hr, 0 mls/hr Documented By: COBY Co-signed By: MAURO Admin: 10/09/23 23:17 Dose: 25 mcg/hr, 2.5 mls/hr Documented By: COBY Co-signed By: TP Sodium Bicarbonate 150 meq/ (Dextrose) 1,150 mls @ 125 mls/hr IV .Q9H12M [facility] Stop: 11/08/23 22:59 Last Admin: 10/09/23 22:59 Dose: 125 mls/hr Documented By: COBY Vasopressin 20 units/ Sodium (Chloride) 101 mls @ 12.12 mls/hr IV .Q8H20M [facility] Stop: 11/09/23 00:14 Last Admin: 10/10/23 00:26 Dose: 0.04 unit/min, 12.1 mls/hr Documented By: COBY Co-signed By: VK Miscellaneous (Icu Protocol For Hyperglycemia) 1 each N/A ACHS [facility] Stop: 10/11/23 22:45 Last Admin: 10/09/23 23:50 Dose: 1 each Documented By: COBY Discontinued Medications Amiodarone HCl (Amiodarone Iv Bolus & Drip) 1 each IV NOW STA; Protocol Stop: 10/09/23 17:53 Last Admin: 10/09/23 23:50 Dose: Not Given Documented By: COBY Cefepime HCl (Maxipime) 2,000 mg in 20 mls @ 5 mls/min IV NOW STA; Protocol Stop: 10/09/23 16:28 Last Admin: 10/09/23 17:15 Dose: 5 mls/min Documented By: BLANKA Vancomycin HCl 1,500 mg/ (Sodium Chloride) 530 mls @ 200 mls/hr IV NOW STA Stop: 10/09/23 18:54 Last Infusion: 10/10/23 00:39 Dose: Infused Documented By: Admin: 10/09/23 17:35 Dose: 200 mls/hr Documented By: TAMMIE Acetaminophen (Ofirmev) 1,000 mg in 100 mls @ 400 mls/hr IV NOW STA Stop: 10/09/23 16:39 Last Infusion: 10/09/23 17:22 Dose: Infused Documented By: Admin: 10/09/23 16:34 Dose: 400 mls/hr Documented By: BLANKA Sodium Chloride (Nss) 1,000 mls @ 125 mls/hr IV .Q8H [facility] Stop: 11/08/23 16:29 Last Infusion: 10/10/23 00:38 Dose: Infused Documented By: Admin: 10/09/23 16:34 Dose: 125 mls/hr Documented By: BLANKA Amiodarone HCl/Dextrose (Nexterone / D5w) 360 mg in 200 mls @ 33.333 mls/hr IV ONE ONE Stop: 10/10/23 00:01 Last Infusion: 10/10/23 00:38 Dose: Infused Documented By: COBY Co-signed By: BRYAN Admin: 10/09/23 18:10 Dose: 1 mg/min, 33.3 mls/hr Documented By: BLANKA Co-signed By: ALVINO Amiodarone HCl/Dextrose (Nexterone / D5w) 150 mg in 100 mls @ 600 mls/hr IV NOW STA Stop: 10/09/23 18:01 Last Infusion: 10/09/23 18:39 Dose: Infused Documented By: BLANKA Co-signed By: HILDA Admin: 10/09/23 17:56 Dose: 600 mls/hr Documented By: BLANKA Co-signed By: TAMMIE Piperacillin Sod/Tazobactam Sod (Zosyn) 4.5 gm in 100 mls @ 200 mls/hr IV ONE STA Stop: 10/09/23 20:22 Last Infusion: 10/10/23 00:38 Dose: Infused Documented By: Admin: 10/09/23 23:17 Dose: 200 mls/hr Documented By: COBY Miscellaneous (Stat Iv Infusion Titration Per Protocol) 1 each N/A NOW STA Stop: 10/09/23 17:53 Last Admin: 10/09/23 23:50 Dose: Not Given Documented By: COBY Sodium Bicarbonate (Sodium Bicarb 8.4% Inj 50 Meq/50 Ml Syr) Confirm Administered Dose 100 meq IV .STK-MED ONE Stop: 10/09/23 22:46 Last Admin: 10/09/23 22:50 Dose: Not Given Documented By: COBY Sodium Bicarbonate (Sodium Bicarb 8.4% Inj 50 Meq/50 Ml Syr) 50 meq IV NOW STA Stop: 10/09/23 22:44 Last Admin: 10/09/23 22:48 Dose: 50 meq Documented By: COBY Sodium Bicarbonate (Sodium Bicarb 8.4% Inj 50 Meq/50 Ml Syr) 50 meq IV NOW STA Stop: 10/09/23 22:44 Last Admin: 10/09/23 22:48 Dose: 50 meq Documented By: COBY Vasopressin (Vasopressin 20 Unit/Ml Vial) Confirm Administered Dose 40 units .ROUTE .STK-MED ONE Stop: 10/09/23 21:10 Last Admin: 10/09/23 23:50 Dose: Not Given Documented By: COBY Imaging Data Radiologist's Impression: Chest X-Ray 10/09/23 16:25 XR chest 1V portable HISTORY: 72 years-old Male Sepsis acute sepsis COMPARISON: Chest CT 07/16/2023 TECHNIQUE: AP view of the chest FINDINGS: Cardiac silhouette is enlarged. Mild right diaphragmatic elevation. Probable trace pleural effusions. Mild bibasilar nodule left midlung atelectasis. Pulmonary vascular congestion. Degenerative changes of the shoulders and spine. IMPRESSION: 1. Cardiomegaly with pulmonary vascular congestion. 2. Mild bibasilar atelectasis. ACT 112: Negative or not required by law. The above report was generated using voice recognition software. It may contain grammatical, syntax or spelling errors. Electronically signed by: Jese Blue M.D. 10/09/2023 4:[address] 10/09/23 16:25 CT SCAN OF THE BRAIN WITHOUT IV CONTRAST CLINICAL HISTORY: Change in mental status. COMPARISON STUDY: CT of the brain dated 07/16/2023. TECHNIQUE: Unenhanced axial CT scan of the brain is performed from the vertex to the skull base. A dose lowering technique was utilized adhering to the principles of ALARA. CT DOSE: 703.85 mGy.cm FINDINGS: Brain parenchyma: There is age-related involutional change noting moderate subcortical and periventricular microangiopathic disease. There is no hemorrhage, mass effect, or evidence of acute territorial ischemia by CT criteria. Hong-white matter differentiation is preserved. No extra-axial fluid collection is seen. Ventricles, sulci, cisterns: Prominent secondary to involutional change. Intracranial vasculature: There is atherosclerotic calcification of the cavernous carotid and vertebral arteries. Calvarium: Unremarkable. Sinuses and mastoids: The visualized paranasal sinuses are clear. The mastoid air cells are well pneumatized. Orbits: The bony orbits are grossly intact. IMPRESSION: There is no hemorrhage, mass effect, or evidence of acute territorial ischemia by CT criteria. ACT 112: Negative or not required by law. Electronically signed by: Brian Daniel M.D. 10/09/2023 4:55 PM Abdomen/Pelvis CT 10/09/23 17:58 CT SCAN OF THE ABDOMEN AND PELVIS WITHOUT IV CONTRAST CLINICAL HISTORY: Acute renal insufficiency. Sepsis. Elevated hepatic transaminases. COMPARISON STUDY: Abdominal CT dated 07/16/2023. TECHNIQUE: CT scan of the abdomen and pelvis is performed from the lung bases to the proximal femora. Images are reviewed in the axial, sagittal, and coronal planes. IV contrast was not administered for this examination due to poor renal function. Note that the examination is suboptimal without oral and IV contrast.. The examination is degraded by motion artifact, as well as by streak artifact from the arms which could not be elevated above the abdomen. A dose lowering technique was utilized adhering to the principles of ALARA. CT DOSE: 2182.2 mGy.cm FINDINGS: Lung bases: The heart is markedly enlarged and without pericardial effusion. The lung bases are clear noting dependent scarring/atelectasis. Liver: The unenhanced liver is normal in size, contour, and attenuation. There is no intrahepatic biliary ductal dilatation. Gallbladder: Unremarkable. Spleen: Normal in size and attenuation. Pancreas: The unenhanced pancreas is moderately atrophic and grossly unremarkable. Adrenal glands: Unremarkable. Kidneys: The unenhanced kidneys demonstrate cortical atrophy and are without hydronephrosis. There are at least 2 small nonobstructing right renal calculi which measure up to 3 mm. A 5.3 cm cyst arises from the right upper pole. Abdominal vasculature: There is moderate to advanced atherosclerotic calcification and mild ectasia of the abdominal aorta. Bowel: There is moderate colonic diverticulosis without CT evidence of acute diverticulitis. A large right inguinal hernia contains the cecum, ascending colon, and the distal ileum. No bowel obstruction is identified. The appendix is normal as visualized, and located within the inguinal hernia. No thick-walled or inflamed bowel loops are identified. There is no pneumatosis intestinalis or portal venous gas. Peritoneum: There is a moderate to large volume of intraperitoneal free air below the diaphragm. There is trace perisplenic ascites. Trace fluid is seen within the right inguinal hernia. There is a fat-containing umbilical hernia. Lymphadenopathy: None. Pelvic viscera: The bladder is decompressed around a Evans catheter and cannot be evaluated. The prostate gland is atrophic and heterogeneous. The seminal vesicles are normal as visualized. There are bilateral groin hernias, right larger than left. The right groin hernia contains bowel loops. See above. Skeletal structures: The skeletal structures are osteopenic. There is mild to moderate lumbosacral spondylosis. No lytic or blastic lesions are seen. IMPRESSION: 1. There is a moderate to large volume of intraperitoneal free air indicative of visceral perforation. The site of perforation is not identified. Surgical evaluation is advised. 2. Large right inguinal hernia which contains small bowel and colon. There is no bowel obstruction. There is no free air within the hernia sac to suggest this as a site of perforation. 3. Marked cardiomegaly. 4. Right-sided nephrolithiasis. 5. Colonic diverticulosis without CT evidence of acute diverticulitis. 6. Additional findings as above. ACT 112: Negative or not required by law. Electronically signed by: Brian Daniel M.D. 10/09/2023 6:46 PM Discharge Plan Visit Data Chief Complaint: Hypotension Stated Complaint: SEPTIC, OPEN WOUNDS, TACHYCARDIC, HYPOTENSIVE ED Provider: Kali Castro Discharge Problem: Sepsis, Hypoxia, Perforated viscus, Bilateral cellulitis of lower leg Patient Disposition: Admitted As Inpatient Discharge Instructions Interventions: ED Discharge Assessment Last Done: 10/09/23 20:51
--- NOTE | 2023-10-09 16:51 | XRay Report ---
XR chest 1V portable HISTORY: 72 years-old Male Sepsis acute sepsis COMPARISON: Chest CT 07/16/2023 TECHNIQUE: AP view of the chest FINDINGS: Cardiac silhouette is enlarged. Mild right diaphragmatic elevation. Probable trace pleural effusions. Mild bibasilar nodule left midlung atelectasis. Pulmonary vascular congestion. Degenerative changes of the shoulders and spine. IMPRESSION: 1. Cardiomegaly with pulmonary vascular congestion. 2. Mild bibasilar atelectasis. ACT 112: Negative or not required by law. The above report was generated using voice recognition software. It may contain grammatical, syntax o r spelling errors. Electronically signed by: Jese Blue M.D. 10/09/2023 4:48 PM
[2023-10-09 16:53] LABS: Base Excess ABG -10.5 mEq/L (-9-1.8); HCO3 ABG 12 mmol/L (19-24); Oxygen Saturation ABG 99.8 % (90-95); PCO2 ABG 20 mmHg (35-46); PO2 ABG 252 mmHg (80-95); pH ABG 7.39 (7.35-7.45)
--- NOTE | 2023-10-09 16:56 | CT Scan Report ---
CT SCAN OF THE BRAIN WITHOUT IV CONTRAST CLINICAL HISTORY: Change in mental status. COMPARISON STUDY: CT of the brain dated 07/16/2023. TECHNIQUE: Unenhanced axial CT scan of the brain is performed from the vertex to the skull base. A do se lowering technique was utilized adhering to the principles of ALARA. CT DOSE: 703.85 mGy.cm FINDINGS: Brain parenchyma: There is age-related involutional change noting moderate subcortical and periventri cular microangiopathic disease. There is no hemorrhage, mass effect, or evidence of acute territorial ischemia by CT criteria. Hong-white matter differentiation is preserved. No extra-axial fluid collec tion is seen. Ventricles, sulci, cisterns: Prominent secondary to involutional change. Intracranial vasculature: There is atherosclerotic calcification of the cavernous carotid and vertebr al arteries. Calvarium: Unremarkable. Sinuses and mastoids: The visualized paranasal sinuses are clear. The mastoid air cells are well pneu matized. Orbits: The bony orbits are grossly intact. IMPRESSION: There is no hemorrhage, mass effect, or evidence of acute territorial ischemia by CT rody henriquez. ACT 112: Negative or not required by law. Electronically signed by: Brian Daniel M.D. 10/09/2023 4:55 PM
[2023-10-09 17:01] LABS: Alanine Aminotransferase 12 U/L (7-52); Albumin Level 2.4 gm/dl (3.4-5.0); Alkaline Phosphatase 161 U/L (34-104); Anion Gap 19 (3-11); Aspartate Aminotransferase 33 U/L (13-39); BUN Creatinine Ratio 19.5 (10-20); Bilirubin Direct 1.4 mg/dl (0-0.2); Bilirubin,Total 2.3 mg/dl (0.2-1.0); Blood Urea Nitrogen 77 mg/dl (6-23); Carbon Dioxide 13 mmol/L (21-32); Chloride 103 mmol/L (98-107); Est GFR (African American) 16.5 ml/min; Est GFR (Non-African American) 14.3 ml/min; Glucose 159 mg/dl (70-99(Fasting)); Magnesium 1.9 mg/dl (1.7-2.4); Potassium 4.6 mmol/L (3.5-5.1); Sodium 135 mmol/L (136-145); Total Protein 5.2 gm/dl (6.0-8.3)
[2023-10-09 17:08] LABS: Hematocrit (blood only) 39.7 % (42.0-52.0); Hemoglobin 13.6 g/dl (14.0-18.0); Mean Corpuscular Hemoglobin 29.6 pg (25.0-34.0); Mean Corpuscular Hgb Conc 34.3 g/dL (32.0-36.0); Mean Corpuscular Volume 86.3 fL (80.0-100.0); Mean Platelet Volume 12.3 fL (9.4-12.4); Nucleated RBC # (auto) 0.03 K/uL (0.00-0.12); Nucleated RBC % (auto) 0.2 %; Platelet Count 51 K/uL (130-400); RDW Standard Deviation 53.2 fL (36.4-46.3); White Blood Count 17.46 K/ul (4.8-10.8)
[2023-10-09 17:10] LABS: INR 1.2 (0.9-1.1); Partial Thromboplastin Time 29 Seconds (21-31); Prothrombin Time 12.6 Seconds (9.0-12.0)
[2023-10-09 17:19] LABS: Troponin I High Sensitivity 1538.6 pg/ml (0-20)
[2023-10-09 17:21] LABS: Basophils # (auto) 0.08 K/uL (0.00-0.20); Basophils % (auto) 0.5 %; Echinocytes 3+; Eosinophils # (auto) 0.41 K/uL (0.00-0.50); Eosinophils % (auto) 2.3 %; Immature Granulocytes # (auto) 1.64 K/uL (0.01-0.20); Immature Granulocytes % (auto) 9.4 %; Lymphocytes # (auto) 0.66 K/uL (1.20-3.40); Lymphocytes % (auto) 3.8 %; Monocytes # (auto) 0.42 K/uL (0.11-0.59); Monocytes % (auto) 2.4 %; Neutrophils # (auto) 14.25 K/uL (1.40-6.50); Neutrophils % (auto) 81.6 %; Platelet Estimate Decreased (Normal); Toxic Vacuolation 3+
[2023-10-09 17:32] LABS: Acetaminophen < 3 ug/ml (10-30); Salicylate < 3.0 mg/dl (3.0-30)
[2023-10-09] MEDS ORDERED: STAT IV Infusion **Titration per Protocol STA ×2 (17:52→22:37)
[2023-10-09] MEDS ORDERED: AMIODARONE IV BOLUS & DRIP IV STA (17:52)
[2023-10-09] MEDS ORDERED: AMIODARONE / D5W 150 MG/100 ML BAG IV STA (17:52)
[2023-10-09] MEDS ORDERED: 0.2 MICRON FILTER SET 1 EACH IV STA (17:52)
[2023-10-09 17:59] LABS: Appearance Urine Cloudy (Clear); Bacteria Urine Automated Negative (Negative); Blood Urine 1+ (Negative); Color Urine Dark Yellow; Epithelial Cell Urine Auto >30 /lpf (0-5); Glucose Urine UA Negative (Negative); Ketones Urine Negative (Negative); Leukocyte Esterase Urine Trace (Negative); Nitrite Urine Positive (Negative); Protein Urine 3+ (Negative); Specific Gravity Urine 1.017 (1.000-1.030); Urobilinogen Urine Negative (Negative)
[2023-10-09] MEDS ORDERED: AMIODARONE / D5W 360 MG/200 ML BAG IV ONE (18:02)
[2023-10-09 18:10] LABS: Bilirubin Urine 1+ (Negative)
[2023-10-09 18:15] LABS: Allen Test Pos (Pos)
--- NOTE | 2023-10-09 18:48 | CT Scan Report ---
CT SCAN OF THE ABDOMEN AND PELVIS WITHOUT IV CONTRAST CLINICAL HISTORY: Acute renal insufficiency. Sepsis. Elevated hepatic transaminases. COMPARISON STUDY: Abdominal CT dated 07/16/2023. TECHNIQUE: CT scan of the abdomen and pelvis is performed from the lung bases to the proximal femora. Images are reviewed in the axial, sagittal, and coronal planes. IV contrast was not administered for this examination due to poor renal function. Note that the examination is suboptimal without oral an d IV contrast.. The examination is degraded by motion artifact, as well as by streak artifact from th e arms which could not be elevated above the abdomen. A dose lowering technique was utilized adhering to the principles of ALARA. CT DOSE: 2182.2 mGy.cm FINDINGS: Lung bases: The heart is markedly enlarged and without pericardial effusion. The lung bases are clear noting dependent scarring/atelectasis. Liver: The unenhanced liver is normal in size, contour, and attenuation. There is no intrahepatic shruti iary ductal dilatation. Gallbladder: Unremarkable. Spleen: Normal in size and attenuation. Pancreas: The unenhanced pancreas is moderately atrophic and grossly unremarkable. Adrenal glands: Unremarkable. Kidneys: The unenhanced kidneys demonstrate cortical atrophy and are without hydronephrosis. There ar e at least 2 small nonobstructing right renal calculi which measure up to 3 mm. A 5.3 cm cyst arises from the right upper pole. Abdominal vasculature: There is moderate to advanced atherosclerotic calcification and mild ectasia o f the abdominal aorta. Bowel: There is moderate colonic diverticulosis without CT evidence of acute diverticulitis. A large right inguinal hernia contains the cecum, ascending colon, and the distal ileum. No bowel obstruction is identified. The appendix is normal as visualized, and located within the inguinal hernia. No thi ck-walled or inflamed bowel loops are identified. There is no pneumatosis intestinalis or portal veno us gas. Peritoneum: There is a moderate to large volume of intraperitoneal free air below the diaphragm. Ther e is trace perisplenic ascites. Trace fluid is seen within the right inguinal hernia. There is a fat- containing umbilical hernia. Lymphadenopathy: None. Pelvic viscera: The bladder is decompressed around a Evans catheter and cannot be evaluated. The pros scott gland is atrophic and heterogeneous. The seminal vesicles are normal as visualized. There are bi lateral groin hernias, right larger than left. The right groin hernia contains bowel loops. See above . Skeletal structures: The skeletal structures are osteopenic. There is mild to moderate lumbosacral sp ondylosis. No lytic or blastic lesions are seen. IMPRESSION: 1. There is a moderate to large volume of intraperitoneal free air indicative of visceral perforation . The site of perforation is not identified. Surgical evaluation is advised. 2. Large right inguinal hernia which contains small bowel and colon. There is no bowel obstruction. T here is no free air within the hernia sac to suggest this as a site of perforation. 3. Marked cardiomegaly. 4. Right-sided nephrolithiasis. 5. Colonic diverticulosis without CT evidence of acute diverticulitis. 6. Additional findings as above. ACT 112: Negative or not required by law. Electronically signed by: Brian Daniel M.D. 10/09/2023 6:46 PM
[2023-10-09 18:56] LABS: Amphetamines+Metham, Urine Neg (Neg); Barbiturates, Urine Neg (Neg); Benzodiazepine, Urine Neg (Neg); Cocaine, Urine Neg (Neg); MDMA (Ecstacy), Urine Neg (Neg); Marijuana, Urine Neg (Neg); Methadone, Urine Neg (Neg); Opiate, Urine Neg (Neg); Phencyclidine, Urine Neg (Neg)
--- NOTE | 2023-10-09 19:37 | Anesthesiology Consultation ---
Date of Service October 09, 2023 Assessment & Plan Chart Review Chart Review: Acceptable Risk for Surgery and Patient NOT seen in Pre Admission Testing Consults Requested none ASA [id number] Proposed Anesthesia Anesthesia Type: General Anesthesia Line Insertion: Arterial line and Central Venous Catheter History Surgery Operation Date: 10/09/23 21:00 Proposed Procedures p Exploratory Laparotomy - Louis Rivera MD Height/Weight Height: 5 ft 7 in Weight: 79.2 kg Allergies Allergy/AdvReac Type Severity Reaction Status Date / Time No Known Allergies Allergy Mild Verified 10/09/23 16:56 Medications Home Medications Medication Instructions Recorded Confirmed Last Taken aspirin 325 mg tablet 325 mg PO DAILY 10/09/23 10/09/23 10/09/23 Active Medications Generic Name Dose Route Start Last Admin Trade Name Freq PRN Reason Stop Dose Admin Sodium Chloride 1,000 mls @ 125 mls/hr 10/09/23 16:30 10/09/23 16:34 Nss IV 11/08/23 16:29 125 mls/hr .Q8H MORIS Administration Amiodarone HCl/Dextrose 360 mg in 200 mls @ 33.333 mls/hr 10/09/23 18:02 10/09/23 18:10 Nexterone / D5w IV 10/10/23 00:01 1 mg/min ONE ONE 33.3 mls/hr Administration 1 MG/MIN Past Medical History CHF AFIB w/RVR ICM LV apical Thrombus ASCVD Ao HLD;HTN DYLLAN/CKD Septic 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 B/L PE's 06/2023 COPD/+ Tobacco Thrombocytopenia on oral anticoagulants Exercise / Class Metabolic Activity III < 4 Walking/Shop/Light housework Past Anesthesia History No Hx of Anesthesia Complications and No Family Hx of Anesthesia Complications History of PONV No Hx of PONV and No Hx of Motion Sickness Social History Smoking Status: Current some day smoker Smoking cigarettes per day: 1 Hx Alcohol Use: Yes Alcohol type: hard liquor alcohol intake frequency: a few times a month Hx Substance Use: No Physical Exam Vital Signs Last Vital Signs Temp 38.3 C H 10/09/23 19:15 Pulse 124 H 10/09/23 19:15 Resp 39 H 10/09/23 19:11 BP 103/69 10/09/23 19:11 Pulse Ox 95 10/09/23 19:15 O2 Del Method BiPAP 10/09/23 19:15 FiO2 60 10/09/23 18:58 Testing Laboratory Results 10/09/23 16:28 10/09/23 16:28 PT 12.6 Seconds (9.0-12.0) H 10/09/23 16:28 INR 1.2 (0.9-1.1) H 10/09/23 16:28 APTT 29 Seconds (21-31) 10/09/23 16:28 Urine Color Dark Yellow 10/09/23 17:45 Urine Appearance Cloudy (Clear) A 10/09/23 17:45 Urine pH 5.0 (4.5-7.5) 10/09/23 17:45 Ur Specific [place] 1.017 (1.000-1.030) 10/09/23 17:45 Urine Protein 3+ (Negative) H 10/09/23 17:45 Urine Glucose (UA) Negative (Negative) 10/09/23 17:45 Urine Ketones Negative (Negative) 10/09/23 17:45 Urine Nitrite Positive (Negative) A 10/09/23 17:45 Ur Leukocyte Esterase Trace (Negative) H 10/09/23 17:45 Urine WBC (Auto) 1-5 /hpf (0-5) 10/09/23 17:45 Urine RBC (Auto) 5-10 /hpf (0-4) H 10/09/23 17:45 U Hyaline Cast (Auto) 1-5 /lpf (0-5) 10/09/23 17:45 U Epithel Cells (Auto) >30 /lpf (0-5) H 10/09/23 17:45 Urine Bacteria (Auto) Negative (Negative) 10/09/23 17:45 Chest X-Ray Date: 10/09/23 Findings: + atelectasis (mild bibasilar), + cardiomegaly and + pulmonary vascular congestion Echocardiogram Date: 07/16/23 EF: < 15% LV Function: dysfunctional RWMA: + hypokinetic (severe global HK) Other Findings: + atrial enlargement (RA-severely dilated), + RVH (RV -mod. - severely dilated;RV function is severely reduced) and + LVH (moderate) Valvular Disease: + MR (moderate) TR-mod.-severe RV sys press. 30-40 Torr LV-apical Thrombus Other Testing 07/16/2023-CT Chest-B/L pulm. emboli;large RA Thrombus
--- NOTE | 2023-10-09 19:50 | History & Physical Report ---
Date of Service October 09, 2023 Assessment & Plan (1) Free intraperitoneal air: Plan: Patient has clinical sepsis secondary to perforated viscus. General surgery consulted patient's on the way to the OR [facility] this evening. IV Zosyn is been ordered the patient received a dose of vancomycin and cefepime in the ER. The patient will be admitted to the ICU after done in the OR we assume he will remain intubated. I did speak personally with the CLAIR on-call for the ICU-xander (2) Atrial fibrillation with RVR: Plan: Patient currently on amiodarone drip. Will volume resuscitate. Must be cautious given the patient's left ventricular ejection fraction of 15%. (3) Elevated troponin: Plan: Probably demand ischemia given the atrial fibrillation with rapid ventricular response as well as the sepsis and hypotension. Monitor at this time (4) Lactate blood increased: Plan: Secondary to clinical sepsis and perforated viscus hydrate recheck (5) LV (left ventricular) mural thrombus: Plan: On last admission he had a left ventricular mural thrombus he has not been taking his medications. Heparin is contraindicated at this time given the significant thrombocytopenia. Will have to monitor this. Anticoagulation when and if appropriate. (6) Wound, open, leg: Plan: Bilateral lower extremity wounds significant active drainage to extensor surfaces bilaterally going down to the ankle and the malleoli regions as well. Patient had vancomycin and cefepime in the ER will culture both legs. Patient is currently on Zosyn. Antibiotic therapy will need to be tailored upon culture data results. (7) Cardiomyopathy: Plan: Last known ejection fraction of 15%. His volume status will be tenuous at this time given his sepsis and need for volume resuscitation. Monitor carefully. (8) Thrombocytopathia: Plan: The patient has significant thrombocytopenia of sepsis he receives going to receive a sixpack of platelet preoperatively. Recommend postoperative laboratory studies upon return to the ICU. (9) Acute kidney failure: Plan: Already had 3 L of normal saline at 125 at this time however his volume status again will be tenuous given his low left ventricular ejection fraction. We will monitor carefully renal function Plan As described above. Please refer to orders for further planning. I had an extensive conversation with the patient's son at the bedside we did inform the patient's son that the patient is at very high risk for during this hospitalization given all the acute issues and chronic comorbidities. The patient's son voiced understanding and was very appreciative of our time all his questions were answered to his satisfaction. History of Present Illness Chief Complaint: Weakness altered mental status medical noncompliance Primary Care Provider: [facility] This is a 72-year-old gentleman who has not been taking any of his home medications has been having increasing weakness with bilateral lower extremity wounds he was found confused and brought in by EMS for evaluation. The patient was found to be significantly hypotensive in the field he received 2 L normal saline upon arrival still hypotensive received 1/3 L. Laboratory studies reveal significant metabolic acidosis with significant thrombocytopenia blood cultures were obtained the patient initially started on vancomycin and cefepime. Abdominal CT revealed a perforated viscus with pneumoperitoneum. Consultation was obtained with general surgery and critical care the patient was placed on BiPAP in the ER. The plan is to go straight to the OR for exploratory lap. I had extensive conversations with the son who is at the bedside the patient's father has an left ventricular ejection fraction of 15% he is clinically septic with severe metabolic acidosis with perforated viscus with acute kidney failure his mortality chances are very very high this was explained to the son he was appreciative of the open conversation. At this point the patient's son would like him to be a DNR but is okay with intubation for surgery but if cardiac arrest takes place he would not want CPR. The patient is okay with positive inotropes/pressors therapy. Allergies Allergy/AdvReac Type Severity Reaction Status Date / Time No Known Allergies Allergy Mild Verified 10/09/23 16:56 Home Medications Medication Instructions Recorded Confirmed Type aspirin 325 mg tablet 325 mg PO DAILY 10/09/23 10/09/23 History Past Med/Surg History Medical History (Updated 10/09/23 @ 20:24 by Rosales Moore, PhD, DO) Acute kidney failure Thrombocytopathia Cardiomyopathy Wound, open, leg Social History Smoking Status: Current some day smoker Tobacco Type: Cigarettes Cigarettes Per Day: 1; Hx Alcohol Use: Yes Alcohol type: hard liquor Hx Substance Use: No Preferred Language: Georgian Communication Ability: Effective 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 Physical Exam Physical Exam: HEENT: Normocephalic atraumatic pupils are equal round and reactive to light bilaterally. No scleral icterus no conjunctival injection external auditory canals are patent septum is in the midline nose is without discharge oral mucosa is pink and dry without lesion. Currently is very somnolent he does wince in pain NECK: Supple no rigidity no lymphadenopathy no thyromegaly no carotid bruits no JVD no masses. HEART: Irregular rate and rhythm consistent with atrial fibrillation with rapid ventricular response. I do not appreciate any ectopy or rub. No murmur. LUNGS: Clear to auscultation bilaterally but significantly diminished due to poor inspiratory effort I do not appreciate any adventitious sounds/wheezes rales or rhonchi. ABDOMEN: Distended tender positive peritoneal sign positive perforated viscus on CT EXTREMITIES: Intact, no peripheral cyanosis, clubbing. Patient has bilateral lower extremity wounds on the extensor surfaces as well as of the malleoli or surfaces of the legs bilaterally that are actively infected with purulent discharge bilateral cultures will be obtained NEUROLOGICAL: No obvious focal deficit but patient due to his current illness is very difficult to evaluate given his weakness and inability to cooperate with Results & Data Results & Data Vital Signs (Past 12 Hours) Vital Signs Temp Pulse Pulse Resp BP BP Pulse Ox 10/09/23 19:15 38.3 C H 124 H 95 10/09/23 19:11 121 H 39 H 91 10/09/23 19:11 103/69 10/09/23 19:10 123 H 32 H 87 L 10/09/23 19:06 123 H 31 H 95 10/09/23 19:06 88/63 L 10/09/23 19:00 106/70 10/09/23 19:00 124 H 32 H 94 10/09/23 18:58 98 H 28 H 92 10/09/23 18:55 124 H 33 H 90 10/09/23 18:55 89/74 L 10/09/23 18:55 89/74 L 10/09/23 18:50 124 H 32 H 93 10/09/23 18:50 95/74 L 10/09/23 18:46 124 H 33 H 88 L 10/09/23 18:46 105/62 10/09/23 18:42 124 H 99/82 L 10/09/23 18:41 99/82 L 10/09/23 18:41 124 H 33 H 90 10/09/23 18:40 122 H 34 H 89 L 10/09/23 18:39 114 H 97/78 L 10/09/23 18:36 121 H 33 H 93 10/09/23 18:36 97/78 L 10/09/23 18:30 121 H 32 H 97 10/09/23 18:30 102/76 10/09/23 18:30 113 H 20 102/76 93 10/09/23 18:28 115 H 16 99 10/09/23 18:11 86/56 L 10/09/23 18:11 86/56 L 10/09/23 18:11 126 H 31 H 96 10/09/23 18:10 126 H 33 H 96 10/09/23 18:06 117 H 32 H 97 10/09/23 18:06 111/80 10/09/23 18:01 129 H 34 H 99 10/09/23 18:01 104/72 10/09/23 18:00 129 H 32 H 97 10/09/23 18:00 128 H 104/72 10/09/23 17:56 130 H 33 H 89 L 10/09/23 17:56 95/75 L 10/09/23 17:52 130 H 18 90 10/09/23 17:51 131 H 33 H 90 10/09/23 17:51 120/78 10/09/23 17:50 130 H 27 H 88 L 10/09/23 17:45 85/70 L 10/09/23 17:45 130 H 31 H 86 L 10/09/23 17:45 130 H 95/55 L 10/09/23 17:41 130 H 33 H 86 L 10/09/23 17:41 99/61 L 10/09/23 17:40 129 H 31 H 86 L 10/09/23 17:36 79/62 L 10/09/23 17:36 130 H 31 H 87 L 10/09/23 17:30 129 H 33 H 72/61 L 91 10/09/23 17:25 75/62 L 10/09/23 17:25 130 H 30 H 75/62 L 10/09/23 17:21 126 H 35 H 83/55 L 87 L 10/09/23 17:20 130 H 25 H 91 10/09/23 17:19 120 H 41 H 84 L 10/09/23 17:17 111 H 37 H 97 10/09/23 17:11 37.4 C 145 H 10 L 84/50 L 79 L 10/09/23 17:10 126 H 32 H 78 L 10/09/23 17:06 83/50 L 10/09/23 17:06 135 H 28 H 10/09/23 17:03 87/45 L 10/09/23 16:59 132 H 30 H 10/09/23 16:59 65/43 L 10/09/23 16:54 132 H 29 H 10/09/23 16:41 110/76 10/09/23 16:41 146 H 30 H 100 10/09/23 16:40 143 H 30 H 100 10/09/23 16:35 144 H 37 H 85 L 10/09/23 16:35 118/83 10/09/23 16:30 110/80 10/09/23 16:30 141 H 23 81 L 10/09/23 16:27 105/79 10/09/23 16:24 130 H 10/09/23 16:24 127 H 36 H O2 Del Method FiO2 10/09/23 19:15 BiPAP 10/09/23 19:11 10/09/23 19:11 10/09/23 19:10 10/09/23 19:06 10/09/23 19:06 10/09/23 19:00 10/09/23 19:00 10/09/23 18:58 60 10/09/23 18:55 10/09/23 18:55 10/09/23 18:55 10/09/23 18:50 10/09/23 18:50 10/09/23 18:46 10/09/23 18:46 10/09/23 18:42 10/09/23 18:41 10/09/23 18:41 10/09/23 18:40 10/09/23 18:39 10/09/23 18:36 10/09/23 18:36 10/09/23 18:30 10/09/23 18:30 10/09/23 18:30 BiPAP 10/09/23 18:28 10/09/23 18:11 10/09/23 18:11 10/09/23 18:11 10/09/23 18:10 10/09/23 18:06 10/09/23 18:06 10/09/23 18:01 10/09/23 18:01 10/09/23 18:00 10/09/23 18:00 10/09/23 17:56 10/09/23 17:56 10/09/23 17:52 BiPAP 10/09/23 17:51 10/09/23 17:51 10/09/23 17:50 10/09/23 17:45 10/09/23 17:45 10/09/23 17:45 10/09/23 17:41 10/09/23 17:41 10/09/23 17:40 10/09/23 17:36 10/09/23 17:36 10/09/23 17:30 10/09/23 17:25 10/09/23 17:25 10/09/23 17:21 10/09/23 17:20 10/09/23 17:19 10/09/23 17:17 10/09/23 17:11 Room Air 10/09/23 17:10 10/09/23 17:06 10/09/23 17:06 10/09/23 17:03 10/09/23 16:59 10/09/23 16:59 10/09/23 16:54 10/09/23 16:41 10/09/23 16:41 10/09/23 16:40 10/09/23 16:35 10/09/23 16:35 10/09/23 16:30 10/09/23 16:30 10/09/23 16:27 10/09/23 16:24 10/09/23 16:24 Code Status & VTE Plan Code Status DNR - ok for intubation. VTE Prophylaxis Plan VTE Prophylaxis will be ordered: No Reason for no VTE drug order: Treatment not indicated PG Care Time/CCT Total # of Minutes Spent Total Time Spent with Patient: Total time spent is greater than 50% in coordination of care (as documented) at patient's floor/unit and/or counseling patient: Coding Level of Care Code 15020 INT INP/OBS CARE 3/75MIN Diagnoses Free intraperitoneal air K66.8 Atrial fibrillation with RVR I48.91 Elevated troponin R77.8 Lactate blood increased R79.89 LV (left ventricular) mural thrombus I51.3 Wound, open, leg S81.809A Cardiomyopathy I42.9 Thrombocytopathia D69.1 Acute kidney failure N17.9
[2023-10-09] MEDS ORDERED: PIPERACILLIN/TAZOBACTAM 4.5 GM/100 ML BAG IV STA (19:53)
--- NOTE | 2023-10-09 20:12 | History & Physical Report ---
Date of Service October 09, 2023 Assessment & Plan (1) Free intraperitoneal air: Plan: discussed with son and they wish to proceed with ex lap very poor prognosis discussed the risks of possible in the OR and potential long ICU stay IVF IV abx Platelets to OR for ex lap History of Present Illness Primary Care Provider: [facility] This is a 72-year-old male found altered mental status at home by family. Patient reportedly had a fall 4 to 5 days prior and has not been acting himself since that time. Patient's son reports that he does not take any of his medications. Patient found by EMS today to be hypotensive tachycardic and febrile. A CT scan was done which shows free intraperitoneal air. Allergies Allergy/AdvReac Type Severity Reaction Status Date / Time No Known Allergies Allergy Mild Verified 10/09/23 16:56 Home Medications Medication Instructions Recorded Confirmed Type aspirin 325 mg tablet 325 mg PO DAILY 10/09/23 10/09/23 History Past Med/Surg History Social History Smoking Status: Current some day smoker Tobacco Type: Cigarettes Cigarettes Per Day: 1; Hx Alcohol Use: Yes Alcohol type: hard liquor Hx Substance Use: No Preferred Language: Jordanian Communication Ability: Effective Canvas Cutter Required: No Beliefs That Will Affect Care: None Current Living Situation: Alone Feels Safe at Home: Yes Assistive Devices: Cane Review of Systems Unobtainable due to cognitive status Physical Exam Constitutional: + ill appearing Neck: trachea midline Respiratory: + respiratory distress and + labored jose athing Auscultation: + diminished lung sounds Cardiovascular: Rate/Rhythm: + tachycardic Gastrointestinal (Abdomen): Inspection/Auscultation: abdomen normal to inspection and + abdomen distended; + abnormal bowel sounds Per cussion/Palpation: + abdomen tender, + guarding and abdomen soft Musculoskeletal: Head/Neck/Chest: normocephalic and head atraumatic ASA Classification ASA [id number] Results & Data Vital Signs (Past 12 Hours) Vital Signs Temp Pulse Pulse Resp BP BP Pulse Ox 10/09/23 20:00 105 H 37 H 10/09/23 20:00 10/09/23 19:56 85/71 L 10/09/23 19:56 118 H 36 H 92 10/09/23 19:50 81/63 L 10/09/23 19:50 116 H 36 H 94 10/09/23 19:46 117 H 35 H 10/09/23 19:46 90/69 L 10/09/23 19:44 116 H 34 H 10/09/23 19:44 82/67 L 10/09/23 19:41 115 H 35 H 10/09/23 19:41 74/61 L 10/09/23 19:40 116 H 34 H 91 10/09/23 19:31 123 H 36 H 95 10/09/23 19:30 122 H 35 H 10/09/23 19:26 85/67 L 10/09/23 19:26 123 H 36 H 91 10/09/23 19:20 91/70 L 10/09/23 19:20 123 H 35 H 97 10/09/23 19:16 123 H 33 H 96 10/09/23 19:15 38.3 C H 124 H 95 10/09/23 19:11 121 H 39 H 91 10/09/23 19:11 103/69 10/09/23 19:10 123 H 32 H 87 L 10/09/23 19:06 123 H 31 H 95 10/09/23 19:06 88/63 L 10/09/23 19:00 106/70 10/09/23 19:00 124 H 32 H 94 10/09/23 18:58 98 H 28 H 92 10/09/23 18:55 124 H 33 H 90 10/09/23 18:55 89/74 L 10/09/23 18:55 89/74 L 10/09/23 18:50 124 H 32 H 93 10/09/23 18:50 95/74 L 10/09/23 18:46 124 H 33 H 88 L 10/09/23 18:46 105/62 10/09/23 18:42 124 H 99/82 L 10/09/23 18:41 99/82 L 10/09/23 18:41 124 H 33 H 90 10/09/23 18:40 122 H 34 H 89 L 10/09/23 18:39 114 H 97/78 L 10/09/23 18:36 121 H 33 H 93 10/09/23 18:36 97/78 L 10/09/23 18:30 121 H 32 H 97 10/09/23 18:30 102/76 12/14/23 18:30 113 H 20 102/76 93 10/09/23 18:28 115 H 16 99 10/09/23 18:11 86/56 L 10/09/23 18:11 86/56 L 10/09/23 18:11 126 H 31 H 96 10/09/23 18:10 126 H 33 H 96 10/09/23 18:06 117 H 32 H 97 10/09/23 18:06 111/80 10/09/23 18:01 129 H 34 H 99 10/09/23 18:01 104/72 10/09/23 18:00 129 H 32 H 97 10/09/23 18:00 128 H 104/72 10/09/23 17:56 130 H 33 H 89 L 10/09/23 17:56 95/75 L 10/09/23 17:52 130 H 18 90 10/09/23 17:51 131 H 33 H 90 10/09/23 17:51 120/78 10/09/23 17:50 130 H 27 H 88 L 10/09/23 17:45 85/70 L 10/09/23 17:45 130 H 31 H 86 L 10/09/23 17:45 130 H 95/55 L 10/09/23 17:41 130 H 33 H 86 L 10/09/23 17:41 99/61 L 10/09/23 17:40 129 H 31 H 86 L 10/09/23 17:36 79/62 L 10/09/23 17:36 130 H 31 H 87 L 10/09/23 17:30 129 H 33 H 72/61 L 91 10/09/23 17:25 75/62 L 10/09/23 17:25 130 H 30 H 75/62 L 10/09/23 17:21 126 H 35 H 83/55 L 87 L 10/09/23 17:20 130 H 25 H 91 10/09/23 17:19 120 H 41 H 84 L 10/09/23 17:17 111 H 37 H 97 10/09/23 17:11 37.4 C 145 H 10 L 84/50 L 79 L 10/09/23 17:10 126 H 32 H 78 L 10/09/23 17:06 83/50 L 10/09/23 17:06 135 H 28 H 10/09/23 17:03 87/45 L 10/09/23 16:59 132 H 30 H 10/09/23 16:59 65/43 L 10/09/23 16:54 132 H 29 H 10/09/23 16:41 110/76 10/09/23 16:41 146 H 30 H 100 10/09/23 16:40 143 H 30 H 100 10/09/23 16:35 144 H 37 H 85 L 10/09/23 16:35 118/83 10/09/23 16:30 110/80 10/09/23 16:30 141 H 23 81 L 10/09/23 16:27 105/79 10/09/23 16:24 130 H 10/09/23 16:24 127 H 36 H O2 Del Method FiO2 10/09/23 20:00 10/09/23 20:00 BiPAP 10/09/23 19:56 10/09/23 19:56 10/09/23 19:50 10/09/23 19:50 10/09/23 19:46 10/09/23 19:46 10/09/23 19:44 10/09/23 19:44 10/09/23 19:41 10/09/23 19:41 10/09/23 19:40 10/09/23 19:31 10/09/23 19:30 10/09/23 19:26 10/09/23 19:26 10/09/23 19:20 10/09/23 19:20 10/09/23 19:16 BiPAP 10/09/23 19:15 BiPAP 10/09/23 19:11 10/09/23 19:11 10/09/23 19:10 10/09/23 19:06 10/09/23 19:06 10/09/23 19:00 10/09/23 19:00 10/09/23 18:58 60 10/09/23 18:55 10/09/23 18:55 10/09/23 18:55 10/09/23 18:50 10/09/23 18:50 10/09/23 18:46 10/09/23 18:46 10/09/23 18:42 10/09/23 18:41 10/09/23 18:41 10/09/23 18:40 10/09/23 18:39 10/09/23 18:36 10/09/23 18:36 10/09/23 18:30 10/09/23 18:30 10/09/23 18:30 BiPAP 10/09/23 18:28 10/09/23 18:11 10/09/23 18:11 10/09/23 18:11 10/09/23 18:10 10/09/23 18:06 10/09/23 18:06 10/09/23 18:01 10/09/23 18:01 10/09/23 18:00 10/09/23 18:00 10/09/23 17:56 10/09/23 17:56 10/09/23 17:52 BiPAP 10/09/23 17:51 10/09/23 17:51 10/09/23 17:50 10/09/23 17:45 10/09/23 17:45 10/09/23 17:45 10/09/23 17:41 10/09/23 17:41 10/09/23 17:40 10/09/23 17:36 10/09/23 17:36 10/09/23 17:30 10/09/23 17:25 10/09/23 17:25 10/09/23 17:21 10/09/23 17:20 10/09/23 17:19 10/09/23 17:17 10/09/23 17:11 Room Air 10/09/23 17:10 10/09/23 17:06 10/09/23 17:06 10/09/23 17:03 10/09/23 16:59 10/09/23 16:59 10/09/23 16:54 10/09/23 16:41 10/09/23 16:41 10/09/23 16:40 10/09/23 16:35 10/09/23 16:35 10/09/23 16:30 10/09/23 16:30 10/09/23 16:27 10/09/23 16:24 10/09/23 16:24 Code Status & VTE Plan VTE Prophylaxis Plan VTE Prophylaxis will be ordered: No Reason for no VTE drug order: Treatment not indicated
[2023-10-09] MEDS ORDERED: ROCURONIUM BROMIDE 10 MG/ML 5 ML VIAL IV ONE (20:29)
[2023-10-09] MEDS ORDERED: ETOMIDATE 2 MG/ML 20 ML VIAL IV ONE (20:29)
[2023-10-09] MEDS ORDERED: NOREPINEPHRINE BITARTRATE 1 MG/ML 4 ML VIAL IV ONE (20:30)
[2023-10-09] MEDS ORDERED: VASOPRESSIN 20 UNIT/ML VIAL ONE ×2 (20:30→21:09)
[2023-10-09] MEDS ORDERED: CALCIUM CHLORIDE 10% 10 ML SYR IV ONE (21:38)
[2023-10-09 21:46] LABS: HCO3 ABG 8 mmol/L (19-24); Oxygen Saturation ABG > 100.0 % (90-95); PCO2 ABG 31 mmHg (35-46); PO2 ABG 302 mmHg (80-95)
[2023-10-09 21:53] LABS: Allen Test Pos (Pos); pH ABG 7.02 (7.35-7.45)
--- NOTE | 2023-10-09 22:09 | Post Operative Brief Note ---
Immediate Post Op Note v1 Date of Surgery October 09, 2023 Pre & Post Diagnosis Operation Date: 10/09/23 21:00 Pre-Op Diagnosis: Perforated viscus. Post-Op Diagnosis: Perforated viscus. I identified the patient and participated in the time-out.: Yes Procedure Operation Date: 10/09/23 21:00 Actual Procedures p Exploratory Laparotomy, repair of perforated viscus. - Louis Rivera MD Surgeon Louis Rivera MD Readers' Advisory Service Librarian none Estimated Blood Loss 20 Findings Consistent with Post-Op Diagnosis Drains Evans Catheter and Hoang-Geronimo Drain
--- NOTE | 2023-10-09 22:18 | Operative Report ---
Post Operative Report Pre & Post Diagnosis Operation Date: 10/09/23 21:00 Pre-Op Diagnosis: Perforated viscus. Post-Op Diagnosis: Sigmoid diverticulitis with likely walled off perforation. I identified the patient and participated in the time-out.: Yes Procedure Operation Date: 10/09/23 21:00 Actual Procedures p Exploratory Laparotomy, suture repair of light perforated sigmoid diverticulitis - Louis Rivera MD Surgeon Louis Rivera MD Senior Case Manager none Estimated Blood Loss 20 Findings Consistent with Post-Op Diagnosis Sigmoid diverticulitis with likely walled off perforation, no fecal spillage or purulence. Specimens None Drains MAGED drain left near the sigmoid diverticulitis Anesthesia Type General Complications None Indications This is a 72-year-old male came in with a history of a syncopal fall who is down for period of time. He came in with mental status changes hypertension and obvious sepsis. A CT scan was done which shows a moderate to large amount of free air in his abdomen. He had a peritoneal signs on exam. We discussed this in detail with his son and recommended exploration. Description of Procedure Patient was taken the OR and underwent general tracheal anesthesia. An A-line and central line were placed intraoperatively. He required multiple fluid boluses and pressors per anesthesia. His blood pressure throughout the procedure was tenuous. Once anesthesia had resuscitated the patient he was prepped and draped normal sterile fashion. Midline incision was made dissection was taken down to into his peritoneal cavity. There was no obvious purulent fluid or feculent material within his abdomen. An exploration was undertaken. The stomach was checked anteriorly with no sign of perforation. The duodenum was also normal in appearance. His sigmoid colon was tethered back to his retroperitoneum and had some obvious inflammation. There was 1 area which appeared abdomen more inflamed but was possibly sealed off with his fatty tissue. The rectum was checked was normal the colon was checked and what appeared to be normal until the cecum was reached. The cecum was incarcerated within her right inguinal hernia. The cecum was brought out the appendix and the cecum were normal in appearance. The rest of the colon had no abnormalities. Small bowel was run from the ligament of Treitz to the ileocecal valve. There were no abnormalities within the small bowel. The gastrocolic ligament was taken down with the LigaSure. The posterior wall of the stomach was normal with no sign of perforation or abnormality. The duodenum was kocherized no abnormality was seen posteriorly. An NG tube was placed and checked to be in good position in his stomach. Attention was then turned to his sigmoid colon where an area which may have caused the free air was reinforced with a suture. A MAGED drain was then placed near the sigmoid colon into the pelvis. Once this was done the abdomen was irrigated out and suctioned clear. No resection was done secondary to his hypotension and and pressor requirement. He also had no fecal or purulent contamination. The abdomen was irrigated and suctioned out to clear. The fascia was closed with a running PDS. Skin was closed with fausto. The drain was sewn in with a nylon suture. He was stable with pressors and fluids but was taken to the ICU intubated for the rest of his care. I attest to the content of the Intraoperative Record and any orders documented therein. Any exceptions are noted below.
[2023-10-09] MEDS ORDERED: fentaNYL BOLUS from BAG IV PRN (22:37)
--- NOTE | 2023-10-09 22:39 | Critical Care Consultation ---
Date of Consultation October 09, 2023 Assessment & Plan (1) Septic shock: Reason Critically Ill: 72-year-old male with systolic heart failure presents to the ICU with septic shock requiring vasopressor support. Found to have free air on CT abdomen and pelvis and underwent ex lap with washout with no identifiable perforation. Patient currently mechanically ventilated postop. Neuro - Sedation/analgesia: Fentanyl drip Cardiac - Shocklikely multifactorial as patient is severely septic, underlying systolic heart failure with last EF from June less than 15% on echo -See ID for treatment of sepsis below -Troponin significantly elevated, suspect demand ischemia. All patient also in acute renal failure. Unable to empirically anticoagulate due to surgical procedure. Trend for now -Will add random cortisol -Continue with Levophed drip to maintain maps greater than 65 -Careful with IV fluid resuscitation given underlying heart failure -Repeat echo in a.m. -A-line for continuous hemodynamic monitoring Atrial fibrillationcurrently rate controlled without medication. Unable to an ticoagulate due to surgery. Hold on beta-blockers due to hypotension. Could consider amiodarone if becomes tachycardic. Monitor for now Respiratory - Acute hypoxic respiratory failurecurrently mechanically ventilated. Expect this is secondary to patient's underlying CHF. Unable to diurese at this time as patient is currently hypotensive requiring vasopressor support. Continue with mechanical ventilation. Trend ABGs. Follow-up chest x-ray. Continuous monitoring on pulse ox and end-tidal CO2. GI - Free air of peritoneumstatus post ex lap with washout. No identifiable perforation per conversation with surgeon. Expect patient likely walled off. -Management per surgical team -Continue Zosyn and vancomycin RENAL/LYTES - Acute renal failurelikely prerenal/ATN secondary to hypovolemia/hypotension -No electrolyte abnormalities at this time. Will continue to trend BMPs and monitor creatinine -Continue with IV fluid resuscitation as tolerated -Maintain maps greater than 65 -Avoid nephrotoxins and renally adjust medications High anion gap metabolic acidosissecondary to lactic acidosis. Continue with fluid resuscitation and treat underlying cause. Will add bicarb drip 150 mill equivalent and monitor routine ABGs - Foleystrict I's and O's ENDO - No history of diabetes or thyroid disease. ICU hypoglycemic protocol HEME - H&H stable, monitor routine CBC. EBL reported minimal Thrombocytopeniareceived 1 unit platelets prior to OR. Repeat CBC pending ID - Sepsismultiple sources possible as patient with free air in peritoneum. Also bilateral lower extremity wounds with purulent drainage -Status post ex lap. See above -Wound cultures and blood cultures pending -Continue Zosyn and vancomycin for now LINES/IV ACCESS - CVL, A-line DVT PROPHYLAXIS - SCDs, unable to anticoagulate due to surgery. CODE STATUS: DNR in the event of cardiac arrest. I have personally spent 55 minutes of critical care time in the direct management of this patient. This is a life/limb threatening event. This includes time spent evaluating patient, direct bedside care, chart review, placing orders, interpretation of diagnostic studies, discussion with consultants, patient, and family members, as well as other required patient management activities. This time is exclusive of all separately billable procedures, and teaching time and separate from and in addition to any other critical care service time. Thank you for allowing us to participate in the care of this patient. Please refer to my attending physician's documentation for any further recommendations. (2) Free intraperitoneal air: (3) Acute kidney failure: (4) Systolic heart failure: (5) Atrial fibrillation with RVR: (6) Wound, open, leg: (7) Thrombocytopenia: (8) Elevated troponin: (9) High anion gap metabolic acidosis: History of Present Illness Attending Physician: Louis Rivera MD History of Present Illness Patient is a 72-year-old male with past medical history significant for systolic heart failure with a EF less than 15%. Patient was found to be altered mental status by family at home and reportedly had a fall 4 to 5 days prior. Patient's son reported to the emergency department that his father did not take any of his prescribed medications, and was recently diagnosed with CHF and was found to have atrial fibrillation with clot in the right atrium. Patient was found by EMS to be hypotensive and tachycardic. Patient was noted to have weeping wounds on his bilateral lower extremities. Patient was given 3 L crystalloid bolus, became hypoxic and was placed on BiPAP in the emergency department. CT head was negative for acute intracranial findings. Patient's lactic acid was significantly elevated at 8. He underwent CT abdomen and pelvis which revealed intraperitoneal free air. Surgery consulted and patient was taken to the OR emergently. Of note, patient is DNR however son was okay with intubation for surgery and okay with vasopressor support. In the OR patient underwent ex lap washout and was found to have sigmoid diverticulitis, but no fecal spillage or purulence noted and expect patient likely had walled off perforation per conversation with the surgeon. Postop patient was transferred to the ICU and was requiring vasopressor support at that time. He did receive central line and arterial line in the OR, and was left intubated postop. Repeat lab work is currently pending. Further management in ICU at this time. Allergies Allergy/AdvReac Type Severity Reaction Status Date / Time No Known Allergies Allergy Mild Verified 10/09/23 16:56 Home Medications Medication Instructions Recorded Confirmed Type aspirin 325 mg tablet 325 mg PO DAILY 10/09/23 10/09/23 History Patient History Medical History (Updated 10/10/23 @ 02:07 by Kali Castro DO) Acute kidney failure Thrombocytopathia Cardiomyopathy Wound, open, leg Social History Smoking Status: Current every day smoker Tobacco Type: Cigarettes Cigarettes Per Day: 1; Second Hand Exposure: No; Do You Dip or Chew Tobacco: No; Tobacco Cessation Education Requested by Patient: No Hx Alcohol Use: Yes Alcohol type: hard liquor Hx Substance Use: No Preferred Language: Kinyarwanda Communication Ability: Unable Quality Control Tester Required: No Beliefs That Will Affect Care: None Current Living Situation: Family Other Information That Helps Us Care for You: No Feels Safe at Home: Yes Safety Concerns: Feels Safe At This Time Assistive Devices: Cane Review of Systems Review of Systems: All systems reviewed & are unremarkable except as noted in HPI & below Physical Exam Constitutional: + ill appearing and + mechanically venti lated Eyes: PERRL, conjunctivae normal, anicteric sclerae ENMT: external ear and nose normal, oropharynx normal Neck: trachea midline, no thyromegaly Respiratory: normal respiratory effort, lungs clear to auscultation Cardiovascular: Rate/Rhythm: + irregularly irregular Heart Sounds: no murmur Vessels: no JVD Extremities: + edema (Bilateral lower extremity edema +2) Gastrointestinal (Abdomen): Abdomen soft nondistended, bowel sounds hypoactive. Midline incision well- approximated with surgical dressing without bleeding Musculoskeletal: no cyanosis or clubbing, extremities motor strength 5/5 Skin: Bilateral lower extremity wounds with weeping and purulent drainage. Skin mottled in upper and lower extremities Neurologic: Exam limited due to sedation/mechanical ventilation. PERRLA, cough gag corneal intact Psychiatric: Unable to assess due to sedation Genitourinary: Indwelling Evans catheter present. Urine dark yellow, concentrated Results & Data Results & Data Vital Signs (Past 12 Hours) Vital Signs Temp Pulse Pulse Resp BP BP BP 10/09/23 22:15 36.2 C L 97 H 18 142/112 H 10/09/23 20:51 38.2 C H 114 H 36 H 10/09/23 20:30 115 H 37 H 10/09/23 20:23 108 H 10/09/23 20:20 112 H 36 H 10/09/23 20:17 114 H 38 H 10/09/23 20:11 112 H 35 H 10/09/23 20:11 84/61 L 10/09/23 20:10 114 H 36 H 10/09/23 20:00 105 H 37 H 10/09/23 20:00 10/09/23 19:56 85/71 L 10/09/23 19:56 118 H 36 H 10/09/23 19:50 81/63 L 10/09/23 19:50 116 H 36 H 10/09/23 19:46 117 H 35 H 10/09/23 19:46 90/69 L 10/09/23 19:44 116 H 34 H 10/09/23 19:44 82/67 L 10/09/23 19:41 115 H 35 H 10/09/23 19:41 74/61 L 10/09/23 19:40 116 H 34 H 10/09/23 19:31 123 H 36 H 10/09/23 19:30 122 H 35 H 10/09/23 19:26 85/67 L 10/09/23 19:26 123 H 36 H 10/09/23 19:20 91/70 L 10/09/23 19:20 123 H 35 H 10/09/23 19:16 123 H 33 H 10/09/23 19:15 38.3 C H 124 H 10/09/23 19:11 121 H 39 H 10/09/23 19:11 103/69 10/09/23 19:10 123 H 32 H 10/09/23 19:06 123 H 31 H 10/09/23 19:06 88/63 L 10/09/23 19:00 106/70 10/09/23 19:00 124 H 32 H 10/09/23 18:58 98 H 28 H 10/09/23 18:55 124 H 33 H 10/09/23 18:55 89/74 L 10/09/23 18:55 89/74 L 10/09/23 18:50 124 H 32 H 10/09/23 18:50 95/74 L 10/09/23 18:46 124 H 33 H 10/09/23 18:46 105/62 10/09/23 18:42 124 H 99/82 L 10/09/23 18:41 99/82 L 10/09/23 18:41 124 H 33 H 10/09/23 18:40 122 H 34 H 10/09/23 18:39 114 H 97/78 L 10/09/23 18:36 121 H 33 H 10/09/23 18:36 97/78 L 10/09/23 18:30 121 H 32 H 10/09/23 18:30 102/76 10/09/23 18:30 113 H 20 102/76 10/09/23 18:28 115 H 16 10/09/23 18:11 86/56 L 10/09/23 18:11 86/56 L 10/09/23 18:11 126 H 31 H 10/09/23 18:10 126 H 33 H 10/09/23 18:06 117 H 32 H 10/09/23 18:06 111/80 10/09/23 18:01 129 H 34 H 10/09/23 18:01 104/72 10/09/23 18:00 129 H 32 H 10/09/23 18:00 128 H 104/72 10/09/23 17:56 130 H 33 H 10/09/23 17:56 95/75 L 10/09/23 17:52 130 H 18 10/09/23 17:51 131 H 33 H 10/09/23 17:51 120/78 10/09/23 17:50 130 H 27 H 10/09/23 17:45 85/70 L 10/09/23 17:45 130 H 31 H 10/09/23 17:45 130 H 95/55 L 10/09/23 17:41 130 H 33 H 10/09/23 17:41 99/61 L 10/09/23 17:40 129 H 31 H 10/09/23 17:36 79/62 L 10/09/23 17:36 130 H 31 H 10/09/23 17:30 129 H 33 H 72/61 L 10/09/23 17:25 75/62 L 10/09/23 17:25 130 H 30 H 75/62 L 10/09/23 17:21 126 H 35 H 83/55 L 10/09/23 17:20 130 H 25 H 10/09/23 17:19 120 H 41 H 10/09/23 17:17 111 H 37 H 10/09/23 17:11 37.4 C 145 H 10 L 84/50 L 10/09/23 17:10 126 H 32 H 10/09/23 17:06 83/50 L 10/09/23 17:06 135 H 28 H 10/09/23 17:03 87/45 L 10/09/23 16:59 132 H 30 H 10/09/23 16:59 65/43 L 10/09/23 16:54 132 H 29 H 10/09/23 16:41 110/76 10/09/23 16:41 146 H 30 H 10/09/23 16:40 143 H 30 H 10/09/23 16:35 144 H 37 H 10/09/23 16:35 118/83 10/09/23 16:30 110/80 10/09/23 16:30 141 H 23 10/09/23 16:27 105/79 10/09/23 16:24 130 H 10/09/23 16:24 127 H 36 H Pulse Ox O2 Del Method FiO2 10/09/23 22:15 Mechanical Vent 100 10/09/23 20:51 89 L BiPAP 10/09/23 20:30 10/09/23 20:23 10/09/23 20:20 83 L BiPAP 10/09/23 20:17 10/09/23 20:11 10/09/23 20:11 10/09/23 20:10 10/09/23 20:00 10/09/23 20:00 BiPAP 10/09/23 19:56 10/09/23 19:56 92 10/09/23 19:50 10/09/23 19:50 94 10/09/23 19:46 10/09/23 19:46 10/09/23 19:44 10/09/23 19:44 10/09/23 19:41 10/09/23 19:41 10/09/23 19:40 91 10/09/23 19:31 95 10/09/23 19:30 10/09/23 19:26 10/09/23 19:26 91 10/09/23 19:20 10/09/23 19:20 97 10/09/23 19:16 96 BiPAP 10/09/23 19:15 95 BiPAP 10/09/23 19:11 91 10/09/23 19:11 10/09/23 19:10 87 L 10/09/23 19:06 95 10/09/23 19:06 10/09/23 19:00 10/09/23 19:00 94 10/09/23 18:58 92 60 10/09/23 18:55 90 10/09/23 18:55 10/09/23 18:55 10/09/23 18:50 93 10/09/23 18:50 10/09/23 18:46 88 L 10/09/23 18:46 10/09/23 18:42 10/09/23 18:41 10/09/23 18:41 90 10/09/23 18:40 89 L 10/09/23 18:39 10/09/23 18:36 93 10/09/23 18:36 10/09/23 18:30 97 10/09/23 18:30 10/09/23 18:30 93 BiPAP 10/09/23 18:28 99 10/09/23 18:11 10/09/23 18:11 10/09/23 18:11 96 10/09/23 18:10 96 10/09/23 18:06 97 10/09/23 18:06 10/09/23 18:01 99 10/09/23 18:01 10/09/23 18:00 97 10/09/23 18:00 10/09/23 17:56 89 L 10/09/23 17:56 10/09/23 17:52 90 BiPAP 10/09/23 17:51 90 10/09/23 17:51 10/09/23 17:50 88 L 10/09/23 17:45 10/09/23 17:45 86 L 10/09/23 17:45 10/09/23 17:41 86 L 10/09/23 17:41 10/09/23 17:40 86 L 10/09/23 17:36 10/09/23 17:36 87 L 10/09/23 17:30 91 10/09/23 17:25 10/09/23 17:25 10/09/23 17:21 87 L 10/09/23 17:20 91 10/09/23 17:19 84 L 10/09/23 17:17 97 10/09/23 17:11 79 L Room Air 10/09/23 17:10 78 L 10/09/23 17:06 10/09/23 17:06 10/09/23 17:03 10/09/23 16:59 10/09/23 16:59 10/09/23 16:54 10/09/23 16:41 10/09/23 16:41 100 10/09/23 16:40 100 10/09/23 16:35 85 L 10/09/23 16:35 10/09/23 16:30 10/09/23 16:30 81 L 10/09/23 16:27 10/09/23 16:24 10/09/23 16:24 Coding Level of Care Code 20675 CRITICAL CARE 1ST 30-74M Diagnoses Septic shock A41.9; R65.21 Free intraperitoneal air K66.8 Acute kidney failure N17.9 Systolic heart failure I50.20 Atrial fibrillation with RVR I48.91 Wound, open, leg S81.809A Thrombocytopenia D69.6 Elevated troponin R77.8 High anion gap metabolic acidosis E87.29
[2023-10-09] MEDS ORDERED: STAT IV/IM STA (22:43)
[2023-10-09] MEDS ORDERED: SODIUM BICARB 8.4% INJ 50 MEQ/50 ML SYR IV STA ×2 (22:43)
[2023-10-09] MEDS ORDERED: SODIUM BICARB 8.4% INJ 50 MEQ/50 ML SYR IV ONE (22:45)
[2023-10-09] MEDS ORDERED: fentaNYL citrate 2,500 MCG/250 ML BAG IV SCH (22:45)
[2023-10-09] MEDS ORDERED: NOREPINEPHRINE/D5W 4 MG/250 ML PLCT IV SCH (22:45)
[2023-10-09] MEDS ORDERED: ICU Protocol for HYPERglycemia SCH (22:46)
--- NOTE | 2023-10-09 22:51 | Anesthesiology Progress Note ---
Date of Service October 09, 2023 Anesthesia Post Procedure Vital Signs Vital Signs: Temp Pulse Pulse Resp BP BP BP 10/09/23 22:15 36.2 C L 97 H 18 142/112 H 10/09/23 20:51 38.2 C H 114 H 36 H 10/09/23 20:30 115 H 37 H 10/09/23 20:23 108 H 10/09/23 20:20 112 H 36 H 10/09/23 20:17 114 H 38 H 10/09/23 20:11 112 H 35 H 10/09/23 20:11 84/61 L 10/09/23 20:10 114 H 36 H 10/09/23 20:00 105 H 37 H 10/09/23 20:00 10/09/23 19:56 85/71 L 10/09/23 19:56 118 H 36 H 10/09/23 19:50 81/63 L 10/09/23 19:50 116 H 36 H 10/09/23 19:46 117 H 35 H 10/09/23 19:46 90/69 L 10/09/23 19:44 116 H 34 H 10/09/23 19:44 82/67 L 10/09/23 19:41 115 H 35 H 10/09/23 19:41 74/61 L 10/09/23 19:40 116 H 34 H 10/09/23 19:31 123 H 36 H 10/09/23 19:30 122 H 35 H 10/09/23 19:26 85/67 L 10/09/23 19:26 123 H 36 H 10/09/23 19:20 91/70 L 10/09/23 19:20 123 H 35 H 10/09/23 19:16 123 H 33 H 10/09/23 19:15 38.3 C H 124 H 10/09/23 19:11 121 H 39 H 10/09/23 19:11 103/69 10/09/23 19:10 123 H 32 H 10/09/23 19:06 123 H 31 H 10/09/23 19:06 88/63 L 10/09/23 19:00 106/70 10/09/23 19:00 124 H 32 H 10/09/23 18:58 98 H 28 H 10/09/23 18:55 124 H 33 H 10/09/23 18:55 89/74 L 10/09/23 18:55 89/74 L 10/09/23 18:50 124 H 32 H 10/09/23 18:50 95/74 L 10/09/23 18:46 124 H 33 H 10/09/23 18:46 105/62 10/09/23 18:42 124 H 99/82 L 10/09/23 18:41 99/82 L 10/09/23 18:41 124 H 33 H 10/09/23 18:40 122 H 34 H 10/09/23 18:39 114 H 97/78 L 10/09/23 18:36 121 H 33 H 10/09/23 18:36 97/78 L 10/09/23 18:30 121 H 32 H 10/09/23 18:30 102/76 10/09/23 18:30 113 H 20 102/76 10/09/23 18:28 115 H 16 10/09/23 18:11 86/56 L 10/09/23 18:11 86/56 L 10/09/23 18:11 126 H 31 H 10/09/23 18:10 126 H 33 H 10/09/23 18:06 117 H 32 H 10/09/23 18:06 111/80 10/09/23 18:01 129 H 34 H 10/09/23 18:01 104/72 10/09/23 18:00 129 H 32 H 10/09/23 18:00 128 H 104/72 10/09/23 17:56 130 H 33 H 10/09/23 17:56 95/75 L 10/09/23 17:52 130 H 18 10/09/23 17:51 131 H 33 H 10/09/23 17:51 120/78 10/09/23 17:50 130 H 27 H 10/09/23 17:45 85/70 L 10/09/23 17:45 130 H 31 H 10/09/23 17:45 130 H 95/55 L 10/09/23 17:41 130 H 33 H 10/09/23 17:41 99/61 L 10/09/23 17:40 129 H 31 H 10/09/23 17:36 79/62 L 10/09/23 17:36 130 H 31 H 10/09/23 17:30 129 H 33 H 72/61 L 10/09/23 17:25 75/62 L 10/09/23 17:25 130 H 30 H 75/62 L 10/09/23 17:21 126 H 35 H 83/55 L 10/09/23 17:20 130 H 25 H 10/09/23 17:19 120 H 41 H 10/09/23 17:17 111 H 37 H 10/09/23 17:11 37.4 C 145 H 10 L 84/50 L 10/09/23 17:10 126 H 32 H 10/09/23 17:06 83/50 L 10/09/23 17:06 135 H 28 H 10/09/23 17:03 87/45 L 10/09/23 16:59 132 H 30 H 10/09/23 16:59 65/43 L 10/09/23 16:54 132 H 29 H 10/09/23 16:41 110/76 10/09/23 16:41 146 H 30 H 10/09/23 16:40 143 H 30 H 10/09/23 16:35 144 H 37 H 10/09/23 16:35 118/83 10/09/23 16:30 110/80 10/09/23 16:30 141 H 23 10/09/23 16:27 105/79 10/09/23 16:24 130 H 10/09/23 16:24 127 H 36 H Pulse Ox O2 Del Method FiO2 10/09/23 22:15 Mechanical Vent 100 10/09/23 20:51 89 L BiPAP 10/09/23 20:30 10/09/23 20:23 10/09/23 20:20 83 L BiPAP 10/09/23 20:17 10/09/23 20:11 10/09/23 20:11 10/09/23 20:10 10/09/23 20:00 10/09/23 20:00 BiPAP 10/09/23 19:56 10/09/23 19:56 92 10/09/23 19:50 10/09/23 19:50 94 10/09/23 19:46 10/09/23 19:46 10/09/23 19:44 10/09/23 19:44 10/09/23 19:41 10/09/23 19:41 10/09/23 19:40 91 10/09/23 19:31 95 10/09/23 19:30 10/09/23 19:26 10/09/23 19:26 91 10/09/23 19:20 10/09/23 19:20 97 10/09/23 19:16 96 BiPAP 10/09/23 19:15 95 BiPAP 10/09/23 19:11 91 10/09/23 19:11 10/09/23 19:10 87 L 10/09/23 19:06 95 10/09/23 19:06 10/09/23 19:00 10/09/23 19:00 94 10/09/23 18:58 92 60 10/09/23 18:55 90 10/09/23 18:55 10/09/23 18:55 10/09/23 18:50 93 10/09/23 18:50 10/09/23 18:46 88 L 10/09/23 18:46 10/09/23 18:42 10/09/23 18:41 10/09/23 18:41 90 10/09/23 18:40 89 L 10/09/23 18:39 10/09/23 18:36 93 10/09/23 18:36 10/09/23 18:30 97 10/09/23 18:30 10/09/23 18:30 93 BiPAP 10/09/23 18:28 99 10/09/23 18:11 10/09/23 18:11 10/09/23 18:11 96 10/09/23 18:10 96 10/09/23 18:06 97 10/09/23 18:06 10/09/23 18:01 99 10/09/23 18:01 10/09/23 18:00 97 10/09/23 18:00 10/09/23 17:56 89 L 10/09/23 17:56 10/09/23 17:52 90 BiPAP 10/09/23 17:51 90 10/09/23 17:51 10/09/23 17:50 88 L 10/09/23 17:45 10/09/23 17:45 86 L 10/09/23 17:45 10/09/23 17:41 86 L 10/09/23 17:41 10/09/23 17:40 86 L 10/09/23 17:36 10/09/23 17:36 87 L 10/09/23 17:30 91 10/09/23 17:25 10/09/23 17:25 10/09/23 17:21 87 L 10/09/23 17:20 91 10/09/23 17:19 84 L 10/09/23 17:17 97 10/09/23 17:11 79 L Room Air 10/09/23 17:10 78 L 10/09/23 17:06 10/09/23 17:06 10/09/23 17:03 10/09/23 16:59 10/09/23 16:59 10/09/23 16:54 10/09/23 16:41 10/09/23 16:41 100 10/09/23 16:40 100 10/09/23 16:35 85 L 10/09/23 16:35 10/09/23 16:30 10/09/23 16:30 81 L 10/09/23 16:27 10/09/23 16:24 10/09/23 16:24 Transfer of Care Handoff Completed per policy Notes Mental Status: see notes below Patient Amnestic to Procedure: Yes Nausea / Vomiting: see Notes below Pain: see Notes below Airway Patency, RR, SpO2: see Notes below BP & HR: see Notes below Hydration State: stable & adequate Anesthetic Complications: see Notes below Notes: pt transferred to ICU intubated on norepinephrine gtt d/t ongoing hemodynamic instability post operatively. pt unstable throughout operative course requiring intensive resuscitation.
[2023-10-09] MEDS ORDERED: SODIUM BICARBONATE 8.4% 150 MEQ in DEXTROSE 5% 1,000 ML IV SCH (23:00)
[2023-10-09 23:45] LABS: Hematocrit (blood only) 42.2 % (42.0-52.0); Hemoglobin 13.4 g/dl (14.0-18.0); Mean Corpuscular Hemoglobin 29.1 pg (25.0-34.0); Mean Corpuscular Hgb Conc 31.8 g/dL (32.0-36.0); Mean Corpuscular Volume 91.5 fL (80.0-100.0); Mean Platelet Volume 11.4 fL (9.4-12.4); Nucleated RBC # (auto) 0.12 K/uL (0.00-0.12); Nucleated RBC % (auto) 0.5 %; Platelet Count 67 K/uL (130-400); RDW Coefficient of Variation 17.6 % (11.5-14.5); RDW Standard Deviation 59.6 fL (36.4-46.3); Red Blood Count 4.61 M/uL (4.70-6.10); White Blood Count 23.23 K/ul (4.8-10.8)
[2023-10-09] MEDS ORDERED: AMIODARONE / D5W 360 MG/200 ML BAG IV SCH (23:45)
[2023-10-09 23:49] LABS: ALC (manual) 1.63 K/uL (1.2-3.4); ANC (manual) 19.05 K/uL (1.4-6.5); Dohle Bodies 1+; Echinocytes 3+; Lymphocytes # (manual) 1.63 K/uL (1.2-3.4); Lymphocytes % (manual) 7 %; Metamyelocytes # (manual) 1.63 K/uL (0-0); Metamyelocytes % (manual) 7 %; Monocytes # (manual) 0.46 K/uL (0.11-0.59); Monocytes % (manual) 2 %; Myelocytes # (manual) 0.46 K/uL (0-0); Myelocytes % (manual) 2 %; Neutrophils # (manual) 19.05 K/uL (1.40-6.50); Neutrophils % (manual) 82 %; Toxic Vacuolation 1+
[2023-10-10] MEDS ORDERED: STAT IV Infusion **Titration per Protocol STA (00:04)
[2023-10-10] MEDS ORDERED: VASOPRESSIN 20 UNITS in 0.9 % SODIUM CHLORIDE 100 ML IV SCH (00:15)
[2023-10-10] MEDS ORDERED: PLASMA-LYTE A 1,000 ML IV ONE (00:33)
[2023-10-10 00:37] LABS: Albumin Globulin Ratio 0.9 (0.9-2); Albumin Level 2.1 gm/dl (3.4-5.0); BUN Creatinine Ratio 18.8 (10-20); Bilirubin,Total 2.7 mg/dl (0.2-1.0); Calcium 7.6 mg/dl (8.6-10.3); Creatinine Clr Calc Pharmacy 15.5 ml/min; Est GFR (Non-African American) 13.8 ml/min; Globulin 2.3 gm/dl (2.5-4.0); Magnesium 2.4 mg/dl (1.7-2.4); Potassium 6.3 mmol/L (3.5-5.1); Total Protein 4.4 gm/dl (6.0-8.3)
[2023-10-10] MEDS ORDERED: PIPERACILLIN/TAZOBACTAM 4.5 GM in DEXTROSE 5% MINI-B 100 ML IV SCH ×2 (01:00→08:00)
--- NOTE | 2023-10-10 01:07 | Death Pronouncement Note ---
Date of Service October 10, 2023 Pronouncement Note Admission Date Admission Date: October 09, 2023 PRONOUNCEMENT NOTE - Date: 10/10/2023 Time: 47 I was contacted by nursing staff regarding the patients declining status and concerns for imminent demise. In short, patient presented to the ICU postop following ex lap with washout after being found to have free air of the peritoneum on CT abdomen and pelvis. Patient was requiring multiple vasopressors for hemodynamic support and had worsening septic shock and metabolic acidosis along with acute renal failure and underlying systolic heart failure. Patient became bradycardic and increasingly hypotensive, and then entered asystole. His CODE STATUS was conditional code with no compressions, no shocks, and no ACLS measures in the event of cardiac arrest. He was mechanically ventilated at the time. Assessment: I presented to the patients room for evaluation. Upon assessment, the patient was found to be in a terminal state. Pupils were fixed and dilated without response. No palpable pulses appreciated. No spontaneous breaths noted. Heart sounds were absent. No response to painful stimuli. Time of : 47 as pronounced by myself. No family was present at the bedside. Patient's son and primary contact, Ki Nam, was attempted to be contacted with the phone number listed in the patient's EMR. Patient's son did not answer the phone and a message to call back to the ICU was left on answering machine. Patients primary service and surgeon were contacted and made aware of patient demise. Pronouncement section of the Certificate was filled out and signed by myself. Cause of : Primary -septic shock Secondary -perforated viscus Contributing Causes of -systolic heart failure, metabolic acidosis, acute renal failure Please feel free to contact me with any questions regarding the above-mentioned course. Contributing Factors (1) Septic shock: (2) Free intraperitoneal air: (3) Acute kidney failure: (4) Systolic heart failure: (5) Atrial fibrillation with RVR: (6) Wound, open, leg: (7) Thrombocytopenia: (8) Elevated troponin: (9) High anion gap metabolic acidosis: Additional Data Attending physician: Rosales Moore, PhD, DO Coding Level of Care Code 67997 IN/OBS DISCH 30 MIN/LESS Diagnoses Septic shock A41.9; R65.21 Free intraperitoneal air K66.8 Acute kidney failure N17.9 Systolic heart failure I50.20 Atrial fibrillation with RVR I48.91 Wound, open, leg S81.809A Thrombocytopenia D69.6 Elevated troponin R77.8 High anion gap metabolic acidosis E87.29
[2023-10-10 01:15] LABS: A calco-baum cmplx NotReported Not Detected (NotDetected); Bact fragilis Not Reported Not Detected (NotDetected); Blood Culture Id Panel PCR Panel Negative (NotDetected); C auris Not Reported Not Detected (NotDetected); Calbicans Not Reported Not Detected (NotDetected); Candida glabrata Not Reported Not Detected (NotDetected); Candida krusei Not Reported Not Detected (NotDetected); Cneoformans/gatti Not Reported Not Detected (NotDetected); Cparapsilosis Not Reported Not Detected (NotDetected); E cloacae compx Not Reported Not Detected (NotDetected); Efaecalis Not Reported Not Detected (NotDetected); Efaecium Not Reported Not Detected (NotDetected); Enterobacterales Not Reported Not Detected (NotDetected); Escherichia coli Not Reported Not Detected (NotDetected); H influenzae Not Reported Not Detected (NotDetected); K aerogenes Not Reported Not Detected (NotDetected); Koxytoca Not Reported Not Detected (NotDetected); Kpneumoniae grp Not Reported Not Detected (NotDetected); Lmonocyt Not Reported Not Detected (NotDetected); N meningitidis Not Reported Not Detected (NotDetected); P aeruginosa Not Reported Not Detected (NotDetected); Proteus spp Not Reported Not Detected (NotDetected); Salmonella spp Not Reported Not Detected (NotDetected); Smarcescens Not Reported Not Detected (NotDetected); Staph lugdunensis Not Reported Not Detected (NotDetected); Staph spp. Not Reported Not Detected (NotDetected); Staphaureus Not Reported Not Detected (NotDetected); Staphepi Not Reported Not Detected (NotDetected); Stenmaltophilia Not Reported Not Detected (NotDetected); Strep agal(GrpB) Not Reported Not Detected (NotDetected); Strep pneum Not Reported Not Detected (NotDetected); Strep pyog (GrpA) Not Reported Not Detected (NotDetected); Strep spp Not Reported Not Detected (NotDetected)
--- NOTE | 2023-10-10 06:51 | Discharge Summary ---
Date of Service October 10, 2023 Admission HPI Per Admitting Provider This is a 72-year-old male found altered mental status at home by family. Patient reportedly had a fall 4 to 5 days prior and has not been acting himself since that time. Patient's son reports that he does not take any of his medications. Patient found by EMS today to be hypotensive tachycardic and febrile. A CT scan was done which shows free intraperitoneal air. Principal Diagnosis secondary to multisystem organ failure secondary to septic shock secondary to perforated viscus and pneumoperitoneum Discharge Data Allergies Allergy/AdvReac Type Severity Reaction Status Date / Time No Known Allergies Allergy Mild Verified 10/09/23 16:56 Consultations 10/09/23 19:19 ED Decision to Admit Stat 10/09/23 19:42 Consult General Surgery Stat 10/09/23 22:46 Consult Counter Weigher Routine Consult Counter Weigher Routine Procedures Performed Operation Date: 10/09/23 21:00 Actual Procedures p Exploratory Laparotomy, suture repair of light perforated sigmoid diverticulitis. - Louis Rivera MD Ordered Studies 10/09/23 16:25 CT head/brain wo con Stat 10/09/23 17:58 CT abd pelvis wo con Stat Hospital Course (1) Septic shock: (2) Perforated viscus: Plan Admission date: 10/09/2023. Discharge date 10/10/2023. Admitting diagnoses: 1. Free intraperitoneal air/pneumoperitoneum 2. Atrial fibrillation with rapid ventricular response. 3. Elevated troponin. 4. Lactic acidosis. 5. Clinical clinical sepsis secondary to the above. 6. Bilateral lower extremity wounds. 7. Cardiomyopathy EF 15%. 8. Thrombocytopenia secondary to clinical sepsis. 9. Acute kidney injury/acute kidney failure. Discharge diagnosis: 1 resulting from multisystem organ failure secondary to septic shock secondary to perforated viscus/pneumoperitoneum which was secondary to ruptured diverticulitis. Hospital course patient was admitted in the evening hours on October 09, 2023 with pneumoperitoneum patient had early clinical sepsis on admission with acute kidney injury with a known left ventricular ejection fraction of only 15% he was volume resuscitated given broad-spectrum IV antibiotic therapy. As discussed in the history and physical examination the patient's son and patient were informed that the patient's chances of were extremely high. Surgery was consulted given the pneumoperitoneum the patient went to the OR for exploratory laparotomy with identification of a ruptured sigmoid colon diverticulitis with suture repair. Patient was admitted to the ICU postoperatively. The patient perioperatively developed septic shock with multisystem organ failure. The patient was a DO NOT RESUSCITATE as discussed in the history and physical examination. After multiple IV pressor therapy the patient eventually became bradycardic and due to his multisystem organ failure secondary to septic shock secondary to perforated viscus. Patient's son was notified by the ICU staff and the patient's . Total Time Total Time Spent Total Time Spent (In Minutes): 21 Discharge Plan Discharge Items Patient Disposition: Other Date/Time: 10/10/23 00:48 Coding Level of Care Code 88560 IN/OBS DISCH 30 MIN/LESS Diagnoses Septic shock A41.9; R65.21 Perforated viscus R19.8
[2023-10-10] MEDS ORDERED: ICU Protocol for HYPERglycemia SCH (07:30)
--- NOTE | 2023-10-10 08:33 | XRay Report ---
SINGLE VIEW CHEST CLINICAL HISTORY: Respiratory failure. Intubation. FINDINGS: An AP, portable, supine chest radiograph is compared to study performed earlier the same da y 10/09/2023 and related with chest CT dated 07/16/2023. An endotracheal tube has been placed. The tip of the catheter projects approximately 5 cm above the ольга. An enteric tube has been placed. The t ip projects below the diaphragm and is not visualized. A left internal jugular central venous cathete r has been placed. The tip projects over the cavoatrial junction. The heart is enlarged. The pulmonar y vasculature is noncongested. Chronic interstitial thickening is similar to previous. There is bibas ilar scarring/atelectasis. The lungs and pleural spaces are otherwise clear. No pneumothorax is seen. The skeletal structures are osteopenic. The bony thorax is grossly intact. Skin clips project over t he upper abdomen. IMPRESSION: 1. Line and tube placement as above. 2. Cardiomegaly without radiographic evidence of congestive failure. 3. No pneumothorax is identified post procedure. 4. No airspace consolidation or large pleural effusion is identified ACT 112: Negative or not required by law. Electronically signed by: Brian Daniel M.D. 10/10/2023 8:31 AM
--- NOTE | 2023-10-10 12:00 | Electrocardiogram Report ---
Test Reason : Blood Pressure : / mmHG Vent. Rate : 140 BPM Atrial Rate : 256 BPM P-R Int : 160 ms QRS Dur : 104 ms QT Int : 286 ms P-R-T Axes : 269 116 -40 degrees QTc Int : 436 ms Poor data quality, interpretation may be adversely affected Atrial flutter with 2 to 1 block Right axis deviation Pulmonary disease pattern Nonspecific ST and T wave abnormality Abnormal ECG When compared with ECG of 16-JUL-2023 12:22, Atrial flutter with 2 to 1 block has replaced Atrial fibrillation Confirmed by Karlos Peña ([id number]) on 10/10/2023 12:00:14 PM Referred By: REFERRED SELF Confirmed By:Karlos Peña
[2023-10-10 21:03] LABS: iSTAT Art Bld Gas pCO2 Correct 39 mmHg (35-46); iSTAT Art Bld Gas pH Corrected 7.003 (7.35-7.45); iSTAT Arterial Blood Gas HCO3 10 meg/L (19-24); iSTAT Arterial Blood Gas pCO2 40 mmHg (35-46); iSTAT Arterial Blood Gas pO2 350 mmHg (80-95); iSTAT Arterial Blood Gas pO2 C 347; iSTAT Carbon Dioxide 11 mmol/L (24-31); iSTAT FiO2 100 %; iSTAT Hematocrit 41 % (42-52); iSTAT Hemoglobin 13.9 g/dl (14.0-18.0); iSTAT Potassium 6.3 mmol/L (3.3-5.0); iSTAT Site Art Line; iSTAT Sodium 136 mmol/L (135-144)
[2023-10-10 21:03] LABS: iSTAT Art Bld Gas pCO2 Correct 40 mmHg (35-46); iSTAT Art Bld Gas pH Corrected 6.996 (7.35-7.45); iSTAT Arterial Blood Gas HCO3 10 meg/L (19-24); iSTAT Arterial Blood Gas pCO2 42 mmHg (35-46); iSTAT Arterial Blood Gas pH 6.99 (7.35-7.45); iSTAT Arterial Blood Gas pO2 369 mmHg (80-95); iSTAT Arterial Blood Gas pO2 C 366; iSTAT Carbon Dioxide 11 mmol/L (24-31); iSTAT FiO2 100 %; iSTAT Hematocrit 41 % (42-52); iSTAT Hemoglobin 13.9 g/dl (14.0-18.0); iSTAT Potassium 6.4 mmol/L (3.3-5.0); iSTAT Site Art Line; iSTAT Sodium 136 mmol/L (135-144)
[2023-10-14 20:12] LABS: CK Total 725 U/L (44-196); CK-BB None Detected (None Detected); CK-MB 0 % (<5); CK-MM 100 % (95-100)
== END 2023-10-10 04:52 | disposition expired | DRG 853 ==
LOC: ED 16:16 → OR 20:51 → 1E 22:20